=== PATIENT | male | born 1960 | race Caucasian/White ===

== ENCOUNTER → 2018-03-13 | Outpatient (CLI) | payer OTHER ==
[~2018-03-13] MED LIST: HYDR-3276 PO; LOSA25TA6 PO; OMNIPAQUE 350 MG/ML, 100ML BOTTLE ONE; PROP60TA PO
== END | disposition home or self-care (01) ==
LOC: CFH 14:06
PROVIDERS: ATTEND Physician Assistant
DX: I08.2 Rheumatic disorders of both aortic and tricuspid valves (principal); I70.0 Atherosclerosis of aorta; I71.2 Thoracic aortic aneurysm, without rupture; K76.0 Fatty (change of) liver, not elsewhere classified
CPT/HCPCS: 71275; 82565; 93306; Q9967

== ENCOUNTER 2018-04-11 06:31 | Day surgery (SDC) | payer OTHER ==
[~2018-04-11] VITALS: Ht 182.9 cm; Wt 104.5 kg
[~2018-04-11 06:31] MED LIST changes: +LOSA25TA25 PO; -LOSA25TA6 PO; -OMNIPAQUE 350 MG/ML, 100ML BOTTLE ONE
[2018-04-11 07:37] VITALS: BP 177/97
[2018-04-11] MEDS ORDERED: LOSA1TAB19 PO (07:49)
[2018-04-11] MEDS ORDERED: METR55GE TP (07:49)
[2018-04-11] MEDS ORDERED: GABA-827 PO (07:49)
[2018-04-11] MEDS ORDERED: ASPI-496 PO (07:50)
[2018-04-11 08:12] LABS: BASOPHILS # (AUTO) 0.03 x10^3/uL (0-0.1); BASOPHILS % (AUTO) 0 % (0-1); EOSINOPHILS # (AUTO) 0.08 x10^3/uL (0-0.4); EOSINOPHILS % (AUTO) 1 % (1-7); LYMPHOCYTES # (AUTO) 1.69 x10^3/uL (1-3.4); LYMPHOCYTES % (AUTO) 21 % (22-44); MD NO; MEAN CORPUSCULAR HEMOGLOBIN 27.4 pg (27.5-34.5); MEAN CORPUSCULAR HGB CONC 32.9 g/dL (33.2-36.2); MEAN CORPUSCULAR VOLUME 83.3 fL (81-97); MEAN PLATELET VOLUME 7.9 fL (7.4-10.4); MONOCYTES # (AUTO) 0.47 x10^3/uL (0.2-0.8); MONOCYTES % (AUTO) 6 % (2-9); NEUTROPHILS # (AUTO) 5.91 x10^3/uL (1.8-6.8); NEUTROPHILS % (AUTO) 72 % (42-75); PLATELET COUNT 215 x10^3/uL (130-400); RED BLOOD COUNT 6.17 x10^6/uL (4.38-5.82); RED CELL DISTRIBUTION WIDTH 14.8 % (9.4-14.8)
[2018-04-11 08:16] LABS: ANION GAP 7 mmol/L (5-15); CALCIUM 8.8 mg/dL (8.5-10.1); CHLORIDE 106 mmol/L (98-107); CREATININE 0.93 mg/dL (0.7-1.3)
[2018-04-11] MEDS ORDERED: VERAPAMIL 2.5 MG/ML, 2ML ONE (08:32)
[2018-04-11] MEDS ORDERED: NITROGLYCERIN 5 MG/ML, 10ML ONE (08:32)
[2018-04-11] MEDS ORDERED: MIDAZOLAM 1 MG/ML, 2ML ONE ×2 (08:32→09:06)
[2018-04-11] MEDS ORDERED: LIDOCAINE 1%, 20ML ONE (08:32)
[2018-04-11] MEDS ORDERED: HEPARIN 1,000 UNITS/ML, 10ML ONE (08:32)
[2018-04-11] MEDS ORDERED: FENTANYL PF 100 MCG/2ML ONE ×2 (08:32→09:06)
== END 2018-04-11 14:31 | disposition home or self-care (01) ==
LOC: CACL 06:31
PROVIDERS: ATTEND Internal Medicine Cardiovascular Disease
DX: I71.2 Thoracic aortic aneurysm, without rupture (principal); I35.0 Nonrheumatic aortic (valve) stenosis; I10 Essential (primary) hypertension; I30.9 Acute pericarditis, unspecified
CPT/HCPCS: 36415; 80048; 85025; 93454; 93567; 99156; 99157; C1760; C1769; C1894; J2250; J3010; J3490; Q9967; J1644

== ENCOUNTER 2018-04-24 04:17 | Inpatient (IN) | payer OTHER ==
[2018-04-23 13:46] LABS: MICROSCOPIC NOT IND
[2018-04-23 13:55] LABS: BASOPHILS # (AUTO) 0.11 x10^3/uL (0-0.1); BASOPHILS % (AUTO) 1 % (0-1); EOSINOPHILS # (AUTO) 0.07 x10^3/uL (0-0.4); EOSINOPHILS % (AUTO) 1 % (1-7); LYMPHOCYTES # (AUTO) 2.26 x10^3/uL (1-3.4); LYMPHOCYTES % (AUTO) 26 % (22-44); MD NO; MEAN CORPUSCULAR HEMOGLOBIN 27.2 pg (27.5-34.5); MEAN CORPUSCULAR HGB CONC 32.9 g/dL (33.2-36.2); MEAN CORPUSCULAR VOLUME 82.6 fL (81-97); MEAN PLATELET VOLUME 7.3 fL (7.4-10.4); MONOCYTES # (AUTO) 0.45 x10^3/uL (0.2-0.8); MONOCYTES % (AUTO) 5 % (2-9); NEUTROPHILS # (AUTO) 5.78 x10^3/uL (1.8-6.8); NEUTROPHILS % (AUTO) 67 % (42-75); PLATELET COUNT 268 x10^3/uL (130-400); RED BLOOD COUNT 6.29 x10^6/uL (4.38-5.82); RED CELL DISTRIBUTION WIDTH 14.8 % (9.4-14.8)
[2018-04-23 14:07] LABS: ALBUMIN 3.8 g/dL (3.4-5.0); ANION GAP 8 mmol/L (5-15); CALCIUM 9.3 mg/dL (8.5-10.1); CHLORIDE 104 mmol/L (98-107)
[2018-04-23 14:09] LABS: INTERNATIONAL NORMALIZED RATIO 1.01 (0.93-1.1); PROTHROMBIN TIME 10.7 Seconds (9.6-11.5)
[2018-04-23 14:11] LABS: ALANINE AMINOTRANSFERASE 28 U/L (12-78); ALKALINE PHOSPHATASE 70 U/L (45-117); BILIRUBIN,TOTAL 1.1 mg/dL (0.2-1.0); CREATININE 1.03 mg/dL (0.7-1.3); TOTAL PROTEIN 7.8 g/dL (6.4-8.2)
[~2018-04-24] VITALS: Ht 182.9 cm; Wt 108.5 kg
[~2018-04-24 04:17] MED LIST changes: +ASPI-496 PO; +GABA-827 PO; +LOSA1TAB19 PO; +METR55GE TP
[2018-04-24 04:37] VITALS: BP 143/89
[2018-04-24 04:38] VITALS: BP 143/91
[2018-04-24] MEDS ORDERED: CHLORHEXIDINE 15 ML UDC MM SCH (05:00)
[2018-04-24] MEDS ORDERED: INSULIN LISPRO 100 UNITS/ML, PEN SQ-INSULIN SCH (05:00)
[2018-04-24 05:09] VITALS: BP 143/89
[2018-04-24] MEDS: MUPIROCIN OINT 2%, 22GM TP SCH ×2 (05:36→21:10)
[2018-04-24] MEDS: SODIUM CHLORIDE FLUSH 10ML SYR IVF SCH ×3 (05:40→21:05)
[2018-04-24] MEDS ORDERED: THROMBIN 5,000 UNIT VIAL TP ONE (06:48)
[2018-04-24] MEDS ORDERED: MIDAZOLAM 10MG/2 ML ONE (07:01)
[2018-04-24] MEDS ORDERED: FENTANYL PF 250 MCG/5ML ONE ×4 (07:01)
[2018-04-24] MEDS ORDERED: CEFUROXIME 1.5 GM in SODIUM CHLORIDE 0.9% 50 ML IVPB PRN (07:30)
[2018-04-24] MEDS ORDERED: REGULAR INSULIN 62.5 UNITS in SODIUM CHLORIDE 0.9% 249.375 ML IV PRN ×2 (07:30→11:57)
[2018-04-24] MEDS ORDERED: EPINEPHRINE 2 MG in SODIUM CHLORIDE 0.9% 248 ML IV SCH (07:30)
[2018-04-24] MEDS ORDERED: MANNITOL PMX 20% 500 ML IVPB PRN (07:30)
[2018-04-24] MEDS ORDERED: VANCOMYCIN IV PRN (07:30)
[2018-04-24] MEDS ORDERED: SODIUM CHLORIDE 0.9% IV PRN (07:30)
[2018-04-24] MEDS ORDERED: ALBUMIN HUMAN 5% 500 ML IV PRN (07:30)
[2018-04-24] MEDS ORDERED: POTASSIUM CHLORIDE 80 MEQ, SODIUM BICARBONATE 8.4% 10 MEQ, MAGNESIUM SULFATE 0.5 GM, LI... IV PRN (07:30)
[2018-04-24] MEDS ORDERED: PHENYLEPHRINE 10 MG in SODIUM CHLORIDE 0.9% 249 ML IV PRN ×2 (07:30→11:57)
[2018-04-24] MEDS ORDERED: DEXMEDETOMIDINE 200 MCG in SODIUM CHLORIDE 0.9% 48 ML IV SCH (07:30)
[2018-04-24] MEDS: DOCUSATE 100 MG CAPSULE PO SCH ×2 (09:00→21:09)
[2018-04-24] MEDS ORDERED: PROTAMINE SULFATE 10 MG/ML, 25ML ONE ×2 (09:27)
[2018-04-24] MEDS ORDERED: PROPOFOL 10 MG/ML, 20ML ONE (09:27)
[2018-04-24] MEDS ORDERED: AMINOCAPROIC ACID 250 MG/ML, 20ML ONE ×2 (09:27)
[2018-04-24] MEDS ORDERED: ROCURONIUM 10MG/ML,5ML ONE ×2 (09:27)
[2018-04-24] MEDS ORDERED: LIDOCAINE 2% 100MG/5ML SYRINGE ONE (11:36)
[2018-04-24] MEDS ORDERED: CALCIUM CHLORIDE 10%, 10ML SYR ONE (11:36)
[2018-04-24] MEDS ORDERED: SODIUM BICARB 8.4%, 50ML SYRINGE ONE (11:36)
[2018-04-24] MEDS ORDERED: SODIUM BICARBONATE 1 MEQ/ML, 50ML VIAL ONE (11:36)
[2018-04-24] MEDS ORDERED: HEPARIN 1,000 UNITS/ML, 30ML ONE (11:37)
[2018-04-24] MEDS ORDERED: ALBUMIN HUMAN 25% 50 ML ONE (11:37)
[2018-04-24] MEDS ORDERED: NITROGLYCERIN/D5W PMX 250 ML IV PRN (11:57)
[2018-04-24] MEDS ORDERED: VASOPRESSIN 50 UNIT in SODIUM CHLORIDE 0.9% 247.5 ML IV PRN (11:57)
[2018-04-24] MEDS ORDERED: DEXMEDETOMIDINE 200 MCG in SODIUM CHLORIDE 0.9% 48 ML IV PRN (11:57)
[2018-04-24] MEDS ORDERED: SODIUM CHLORIDE 0.9% 1,000 ML IV PRN (11:57)
[2018-04-24] MEDS ORDERED: DOBUTAMINE 250 MG in SODIUM CHLORIDE 0.9% 230 ML IV PRN (11:57)
[2018-04-24] MEDS ORDERED: GLUCAGON 1 MG IM PRN (12:00)
[2018-04-24] MEDS ORDERED: DEXTROSE 4 GM TAB.CHEW PO PRN (12:00)
[2018-04-24] MEDS ORDERED: EPINEPHRINE 2 MG in SODIUM CHLORIDE 0.9% 248 ML IV PRN (12:00)
[2018-04-24] MEDS ORDERED: MIDAZOLAM 1 MG/ML, 5ML IVPush PRN (12:00)
[2018-04-24] MEDS ORDERED: ACETAMINOPHEN 650 MG SUPP PR PRN (12:00)
[2018-04-24] MEDS ORDERED: DEXTROSE 50%, 50ML SYRINGE IVPush PRN (12:00)
[2018-04-24] MEDS: KSCALE TO 4.5 IV SCH ×2 (12:00→18:00)
[2018-04-24] MEDS ORDERED: INSULIN REGULAR 100 UNITS/ML, 3ML VIAL IVPush PRN (12:00)
[2018-04-24] MEDS ORDERED: FENTANYL PF 100 MCG/2ML IVPush PRN (12:00)
[2018-04-24] MEDS ORDERED: HYDROcodone/APAP 5/325 TABLET PO PRN (12:00)
[2018-04-24] MEDS ORDERED: BISACODYL 5 MG EC TABLET PO PRN (12:00)
[2018-04-24] MEDS ORDERED: BISACODYL 10 MG SUPP PR PRN (12:00)
[2018-04-24] MEDS ORDERED: SODIUM BICARB 8.4%, 50ML SYRINGE IV PRN (12:00)
[2018-04-24] MEDS ORDERED: LACTATED RINGERS 1,000 ML IV PRN (12:00)
[2018-04-24] MEDS ORDERED: PROCHLORPERAZINE 5 MG/ML, 2ML IVPush PRN (12:00)
[2018-04-24] MEDS: MAGNESIUM SULFATE 1 GM in SODIUM CHLORIDE 0.9% 50 ML IVPB SCH (12:41)
[2018-04-24 12:51] LABS: GLUCOSE BY BLOOD GAS ANALYZER 121 mg/dL (70-110); HEMOGLOBIN BY BLOOD GAS ANALYZ 15.5 g/dL (14.0-18.0); POTASSIUM BY BLOOD GAS ANALYZR 4.2 mmol/L (3.6-5.5)
[2018-04-24] MEDS ORDERED: MORPHINE SULFATE 4 MG/ML, 1ML ONE (12:54)
[2018-04-24] MEDS: morphine SULFATE 10 MG/ML, 1ML IVPush PRN ×2 (12:59→20:40)
[2018-04-24 13:01] LABS: INTERNATIONAL NORMALIZED RATIO 1.21 (0.93-1.1); PROTHROMBIN TIME 12.7 Seconds (9.6-11.5)
[2018-04-24] MEDS: OXYcodone IR 5MG TABLET PO PRN ×3 (15:21→21:09)
[2018-04-24] MEDS: HYDROcodone/APAP 10/325 MG TABLET PO PRN (16:49)
[2018-04-24] MEDS: INSULIN LISPRO 100 UNITS/ML, PEN SQ-INSULIN SCH ×2 (16:54→21:00)
[2018-04-24] MEDS: CEFUROXIME 1.5 GM in SODIUM CHLORIDE 0.9% 50 ML IVPB SCH (20:16)
[2018-04-24] MEDS: MUPIROCIN OINT 2%, 22GM NAS SCH (21:00)
[2018-04-24] MEDS: VANCOMYCIN 1,600 MG in SODIUM CHLORIDE 0.9% 250 ML IVPB SCH (21:04)
[2018-04-25] MEDS: OXYcodone IR 5MG TABLET PO PRN ×3 (00:20→12:41)
[2018-04-25] MEDS: HYDROcodone/APAP 10/325 MG TABLET PO PRN ×2 (02:45→04:00)
[2018-04-25 04:48] LABS: INTERNATIONAL NORMALIZED RATIO 1.09 (0.93-1.1); PROTHROMBIN TIME 11.5 Seconds (9.6-11.5)
[2018-04-25 04:51] LABS: ALBUMIN 2.8 g/dL (3.4-5.0); ANION GAP 7 mmol/L (5-15); BASOPHILS % (AUTO) 2 % (0-1); CHLORIDE 105 mmol/L (98-107); EOSINOPHILS % (AUTO) 0 % (1-7); LYMPHOCYTES # (AUTO) 1.15 x10^3/uL (1-3.4); LYMPHOCYTES % (AUTO) 7 % (22-44); MD NO; MEAN CORPUSCULAR HGB CONC 33.7 g/dL (33.2-36.2); MEAN PLATELET VOLUME 7.4 fL (7.4-10.4); MONOCYTES # (AUTO) 0.97 x10^3/uL (0.2-0.8); MONOCYTES % (AUTO) 6 % (2-9); NEUTROPHILS # (AUTO) 13.92 x10^3/uL (1.8-6.8); NEUTROPHILS % (AUTO) 85 % (42-75); PLATELET COUNT 164 x10^3/uL (130-400); RED BLOOD COUNT 5.11 x10^6/uL (4.38-5.82); RED CELL DISTRIBUTION WIDTH 14.9 % (9.4-14.8)
[2018-04-25] MEDS: INSULIN LISPRO 100 UNITS/ML, PEN SQ-INSULIN SCH ×4 (05:00→23:00)
[2018-04-25] MEDS: KSCALE TO 4.5 IV SCH ×2 (06:00)
[2018-04-25] MEDS ORDERED: ETOMIDATE 20 MG/10 ML ONE (08:00)
[2018-04-25] MEDS ORDERED: PROPOFOL 10 MG/ML, 100ML IV ONE (08:00)
[2018-04-25] MEDS ORDERED: ROCURONIUM 10 MG/ML,10ML ONE (08:00)
[2018-04-25] MEDS: CEFUROXIME 1.5 GM in SODIUM CHLORIDE 0.9% 50 ML IVPB SCH (08:55)
[2018-04-25] MEDS: MUPIROCIN OINT 2%, 22GM NAS SCH ×2 (09:00→20:46)
[2018-04-25] MEDS: ASPIRIN 81 MG TABLET EC PO SCH (09:26)
[2018-04-25] MEDS: VANCOMYCIN 1,600 MG in SODIUM CHLORIDE 0.9% 250 ML IVPB SCH (09:26)
[2018-04-25] MEDS: POTASSIUM CHLORIDE 10 MEQ TABLET.ER PO SCH (09:26)
[2018-04-25] MEDS: DOCUSATE 100 MG CAPSULE PO SCH ×2 (09:26→20:43)
[2018-04-25] MEDS: FUROSEMIDE 20 MG/2 ML IV SCH (09:26)
[2018-04-25] MEDS: WARFARIN BIOPROSTHETIC VALVE PROTOCOL 2-3 XX SCH (09:27)
[2018-04-25] MEDS: SODIUM CHLORIDE FLUSH 10ML SYR IVF SCH ×2 (09:27→20:48)
[2018-04-25] MEDS: MUPIROCIN OINT 2%, 22GM TP SCH ×2 (10:11→20:48)
[2018-04-25] MEDS: WARFARIN MODERAT DOSE PROTOCOL XX SCH (12:00)
[2018-04-25] MEDS: MAGNESIUM SULFATE 1 GM in SODIUM CHLORIDE 0.9% 50 ML IVPB SCH (12:41)
[2018-04-25] MEDS ORDERED: LOSARTAN 50MG TABLET PO SCH (14:00)
[2018-04-25] MEDS ORDERED: FENTANYL PF 100 MCG/2ML ONE (15:23)
[2018-04-25] MEDS ORDERED: PHARMACY MAY ADJ FOR RENAL FX MC SCH (16:00)
[2018-04-25] MEDS: METOPROLOL TARTRATE 25 MG TABLET PO SCH (18:00)
[2018-04-25] MEDS ORDERED: WARFARIN 7.5 MG TABLET PO-COUM ONE (18:00)
[2018-04-25] MEDS ORDERED: OMNIPAQUE 350 MG/ML, 100ML BOTTLE ONE (18:07)
[2018-04-25] MEDS: FENTANYL PF 100 MCG/2ML IVPush PRN (19:11)
[2018-04-25] MEDS: PROPOFOL 100 ML IV PRN (20:31)
[2018-04-25] MEDS: AMPICILLIN/SULBACTAM 3 GM in SODIUM CHLORIDE 0.9% 100 ML IV SCH (20:32)
[2018-04-25] MEDS: CHLORHEXIDINE 15 ML UDC MM SCH (20:47)
[2018-04-26] MEDS: FENTANYL PF 100 MCG/2ML IVPush PRN ×2 (00:39→05:37)
[2018-04-26 01:15] LABS: ALANINE AMINOTRANSFERASE 18 U/L (12-78); ALBUMIN 2.5 g/dL (3.4-5.0); ANION GAP 7 mmol/L (5-15); CALCIUM 7.5 mg/dL (8.5-10.1); CHLORIDE 102 mmol/L (98-107); CREATININE 0.87 mg/dL (0.7-1.3)
[2018-04-26 01:18] LABS: ALKALINE PHOSPHATASE 48 U/L (45-117); BILIRUBIN,TOTAL 0.9 mg/dL (0.2-1.0); TOTAL PROTEIN 5.5 g/dL (6.4-8.2)
[2018-04-26] MEDS: AMPICILLIN/SULBACTAM 3 GM in SODIUM CHLORIDE 0.9% 100 ML IV SCH ×4 (02:11→20:31)
[2018-04-26 04:52] LABS: BASOPHILS # (AUTO) 0.09 x10^3/uL (0-0.1); BASOPHILS % (AUTO) 1 % (0-1); EOSINOPHILS # (AUTO) 0.02 x10^3/uL (0-0.4); EOSINOPHILS % (AUTO) 0 % (1-7); LYMPHOCYTES # (AUTO) 1.04 x10^3/uL (1-3.4); LYMPHOCYTES % (AUTO) 7 % (22-44); MD NO; MEAN CORPUSCULAR HEMOGLOBIN 28.1 pg (27.5-34.5); MEAN CORPUSCULAR HGB CONC 33.9 g/dL (33.2-36.2); MEAN PLATELET VOLUME 7.9 fL (7.4-10.4); MONOCYTES # (AUTO) 0.93 x10^3/uL (0.2-0.8); MONOCYTES % (AUTO) 6 % (2-9); NEUTROPHILS # (AUTO) 13.03 x10^3/uL (1.8-6.8); NEUTROPHILS % (AUTO) 86 % (42-75); PLATELET COUNT 151 x10^3/uL (130-400); RED BLOOD COUNT 4.61 x10^6/uL (4.38-5.82); RED CELL DISTRIBUTION WIDTH 15.2 % (9.4-14.8)
[2018-04-26 04:54] LABS: INTERNATIONAL NORMALIZED RATIO 1.21 (0.93-1.1); PROTHROMBIN TIME 12.7 Seconds (9.6-11.5)
[2018-04-26 04:55] LABS: ANION GAP 5 mmol/L (5-15); CALCIUM 7.9 mg/dL (8.5-10.1); CHLORIDE 102 mmol/L (98-107); CREATININE 0.97 mg/dL (0.7-1.3)
[2018-04-26] MEDS: INSULIN LISPRO 100 UNITS/ML, PEN SQ-INSULIN SCH ×5 (05:00→22:03)
[2018-04-26] MEDS: PROPOFOL 100 ML IV PRN ×2 (05:18→17:35)
[2018-04-26] MEDS: POTASSIUM CHLORIDE 10 MEQ TABLET.ER PO SCH (08:06)
[2018-04-26] MEDS: METOPROLOL TARTRATE 25 MG TABLET PO SCH ×2 (08:07→17:39)
[2018-04-26] MEDS: FUROSEMIDE 20 MG/2 ML IV SCH (08:30)
[2018-04-26] MEDS ORDERED: DO NOT GIVE XX PRN (09:00)
[2018-04-26] MEDS ORDERED: POTASSIUM CHLORIDE PMX 100 ML IV ONE (09:00)
[2018-04-26] MEDS: WARFARIN BIOPROSTHETIC VALVE PROTOCOL 2-3 XX SCH (09:00)
[2018-04-26] MEDS ORDERED: HEPARIN wt. based STROKE protocol MC PRN (09:00)
[2018-04-26] MEDS: DOCUSATE 100 MG CAPSULE PO SCH ×2 (09:00→19:55)
[2018-04-26] MEDS: CHLORHEXIDINE 15 ML UDC MM SCH ×2 (09:17→19:55)
[2018-04-26] MEDS: ASPIRIN 81 MG TABLET EC PO SCH (09:18)
[2018-04-26] MEDS: MUPIROCIN OINT 2%, 22GM NAS SCH ×2 (09:18→20:31)
[2018-04-26] MEDS: SODIUM CHLORIDE FLUSH 10ML SYR IVF SCH ×2 (09:20→22:03)
[2018-04-26] MEDS: OXYcodone IR 5MG TABLET PO PRN ×2 (09:31→22:02)
[2018-04-26] MEDS: ACETAMINOPHEN 325 MG TABLET PO PRN ×2 (11:50→17:28)
[2018-04-26] MEDS: WARFARIN MODERAT DOSE PROTOCOL XX SCH (12:00)
[2018-04-26] MEDS: MAGNESIUM SULFATE 1 GM in SODIUM CHLORIDE 0.9% 50 ML IVPB SCH (13:08)
[2018-04-26] MEDS: HEPARIN 25,000 UNITS/500ML PMX 500 ML IV PRN (15:36)
--- NOTE | 2018-04-26 15:46 | NUR ---
TF RECOMMENDATION: On propofol, promote at 55ml/hr. Off propofol, promote at 70 ml/hr Addendum: 04/26/18 at [address] Amended: Links added.
[2018-04-26] MEDS ORDERED: WARFARIN 7.5 MG TABLET PO-COUM ONE (18:00)
[2018-04-27] MEDS: FENTANYL PF 100 MCG/2ML IVPush PRN ×2 (00:42→22:47)
[2018-04-27] MEDS: AMPICILLIN/SULBACTAM 3 GM in SODIUM CHLORIDE 0.9% 100 ML IV SCH ×4 (01:43→22:28)
[2018-04-27] MEDS: ACETAMINOPHEN 325 MG TABLET PO PRN ×4 (03:48→21:05)
[2018-04-27 04:50] LABS: BASOPHILS # (AUTO) 0.04 x10^3/uL (0-0.1); BASOPHILS % (AUTO) 0 % (0-1); EOSINOPHILS # (AUTO) 0.01 x10^3/uL (0-0.4); EOSINOPHILS % (AUTO) 0 % (1-7); LYMPHOCYTES # (AUTO) 0.88 x10^3/uL (1-3.4); LYMPHOCYTES % (AUTO) 7 % (22-44); MD NO; MEAN CORPUSCULAR HEMOGLOBIN 28.2 pg (27.5-34.5); MEAN CORPUSCULAR VOLUME 82.8 fL (81-97); MEAN PLATELET VOLUME 8.2 fL (7.4-10.4); MONOCYTES # (AUTO) 0.79 x10^3/uL (0.2-0.8); MONOCYTES % (AUTO) 6 % (2-9); NEUTROPHILS # (AUTO) 11.37 x10^3/uL (1.8-6.8); NEUTROPHILS % (AUTO) 87 % (42-75); PLATELET COUNT 149 x10^3/uL (130-400); RED BLOOD COUNT 4.26 x10^6/uL (4.38-5.82); RED CELL DISTRIBUTION WIDTH 15.3 % (9.4-14.8)
[2018-04-27 04:54] LABS: INTERNATIONAL NORMALIZED RATIO 1.82 (0.93-1.1); PROTHROMBIN TIME 18.9 Seconds (9.6-11.5)
[2018-04-27 04:58] LABS: ANION GAP 5 mmol/L (5-15); CALCIUM 7.5 mg/dL (8.5-10.1); CHLORIDE 105 mmol/L (98-107)
[2018-04-27 04:59] LABS: CREATININE 0.83 mg/dL (0.7-1.3)
[2018-04-27] MEDS: INSULIN LISPRO 100 UNITS/ML, PEN SQ-INSULIN SCH ×4 (05:31→22:00)
[2018-04-27] MEDS: METOPROLOL TARTRATE 25 MG TABLET PO SCH ×2 (05:31→17:56)
[2018-04-27] MEDS: OXYcodone IR 5MG TABLET PO PRN (07:03)
[2018-04-27] MEDS: WARFARIN BIOPROSTHETIC VALVE PROTOCOL 2-3 XX SCH (09:00)
[2018-04-27] MEDS: CHLORHEXIDINE 15 ML UDC MM SCH (09:00)
[2018-04-27] MEDS: DOCUSATE 100 MG CAPSULE PO SCH (09:38)
[2018-04-27] MEDS: ASPIRIN 81 MG TABLET CHEW PO SCH (09:54)
[2018-04-27] MEDS: FUROSEMIDE 20 MG/2 ML IV SCH ×2 (09:55→19:27)
[2018-04-27] MEDS ORDERED: POTASSIUM CHLORIDE 20 MEQ PACKET PO SCH (10:00)
[2018-04-27] MEDS: MUPIROCIN OINT 2%, 22GM NAS SCH ×2 (10:19→19:57)
[2018-04-27] MEDS: SODIUM CHLORIDE FLUSH 10ML SYR IVF SCH ×2 (10:20→19:51)
[2018-04-27] MEDS: WARFARIN MODERAT DOSE PROTOCOL XX SCH (11:37)
[2018-04-27] MEDS: HEPARIN 25,000 UNITS/500ML PMX 500 ML IV PRN (12:07)
[2018-04-27 12:19] LABS: CHOL/HDL RATIO 4.6; LDL/HDL RATIO 2.1 (0.5-3.0)
[2018-04-27] MEDS ORDERED: AMIODARONE 150 MG in DEXTROSE 5% 100 ML IV ONE (14:00)
[2018-04-27] MEDS: AMIODARONE 900 MG in DEXTROSE 5% 482 ML IV PRN (14:05)
[2018-04-27] MEDS: PROPOFOL 100 ML IV PRN ×2 (14:06→19:51)
[2018-04-27] MEDS ORDERED: FUROSEMIDE 20 MG/2 ML IV ONE (17:30)
[2018-04-27] MEDS ORDERED: WARFARIN 5 MG TABLET PO-COUM ONE (18:00)
[2018-04-27] MEDS ORDERED: ALBUMIN HUMAN 25% 100 ML IV ONE (19:30)
[2018-04-27] MEDS: NOREPINEPHRINE 4 MG in SODIUM CHLORIDE 0.9% 246 ML IV PRN (19:55)
[2018-04-27] MEDS: DOCUSATE 50 MG/5 ML, 10ML UDC PO SCH (20:22)
[2018-04-28] MEDS: NOREPINEPHRINE 4 MG in SODIUM CHLORIDE 0.9% 246 ML IV PRN ×3 (00:34→13:49)
[2018-04-28] MEDS: AMPICILLIN/SULBACTAM 3 GM in SODIUM CHLORIDE 0.9% 100 ML IV SCH ×3 (02:12→13:48)
[2018-04-28] MEDS: HEPARIN 25,000 UNITS/500ML PMX 500 ML IV PRN (02:15)
[2018-04-28] MEDS: FENTANYL PF 100 MCG/2ML IVPush PRN ×2 (02:54→22:40)
[2018-04-28] MEDS: ACETAMINOPHEN 325 MG TABLET PO PRN (02:54)
[2018-04-28] MEDS: PROPOFOL 100 ML IV PRN ×2 (04:25→17:43)
[2018-04-28] MEDS: INSULIN LISPRO 100 UNITS/ML, PEN SQ-INSULIN SCH ×4 (04:51→22:32)
[2018-04-28] MEDS: METOPROLOL TARTRATE 25 MG TABLET PO SCH ×2 (05:52→17:42)
[2018-04-28 06:06] LABS: BASOPHILS # (AUTO) 0.07 x10^3/uL (0-0.1); BASOPHILS % (AUTO) 0 % (0-1); EOSINOPHILS % (AUTO) 0 % (1-7); LYMPHOCYTES # (AUTO) 1.75 x10^3/uL (1-3.4); LYMPHOCYTES % (AUTO) 11 % (22-44); MD NO; MEAN CORPUSCULAR HEMOGLOBIN 28.1 pg (27.5-34.5); MEAN CORPUSCULAR HGB CONC 33.9 g/dL (33.2-36.2); MEAN CORPUSCULAR VOLUME 82.9 fL (81-97); MEAN PLATELET VOLUME 9.1 fL (7.4-10.4); MONOCYTES # (AUTO) 0.74 x10^3/uL (0.2-0.8); MONOCYTES % (AUTO) 5 % (2-9); NEUTROPHILS # (AUTO) 14.04 x10^3/uL (1.8-6.8); NEUTROPHILS % (AUTO) 85 % (42-75); PLATELET COUNT 161 x10^3/uL (130-400); RED BLOOD COUNT 4.08 x10^6/uL (4.38-5.82); RED CELL DISTRIBUTION WIDTH 15.2 % (9.4-14.8)
[2018-04-28 06:14] LABS: INTERNATIONAL NORMALIZED RATIO 4.54 (0.93-1.1); PROTHROMBIN TIME 45.4 Seconds (9.6-11.5)
[2018-04-28 06:17] LABS: ANION GAP 10 mmol/L (5-15); CALCIUM 7.8 mg/dL (8.5-10.1); CHLORIDE 98 mmol/L (98-107); CREATININE 1.54 mg/dL (0.7-1.3); TRIGLYCERIDES 108 mg/dL (50-200)
[2018-04-28] MEDS ORDERED: HOLD COUMADIN MC PRN (08:00)
[2018-04-28] MEDS ORDERED: POTASSIUM CHLORIDE 20 MEQ PACKET PO SCH (08:00)
[2018-04-28] MEDS ORDERED: SODIUM CHLORIDE 0.9% 1,000 ML IV ONE (08:30)
[2018-04-28] MEDS: SODIUM CHLORIDE FLUSH 10ML SYR IVF SCH (09:00)
[2018-04-28] MEDS: WARFARIN BIOPROSTHETIC VALVE PROTOCOL 2-3 XX SCH (09:32)
[2018-04-28] MEDS: ASPIRIN 81 MG TABLET CHEW PO SCH (09:40)
[2018-04-28] MEDS: DOCUSATE 50 MG/5 ML, 10ML UDC PO SCH ×2 (09:40→21:00)
[2018-04-28] MEDS: MUPIROCIN OINT 2%, 22GM NAS SCH ×2 (09:41→21:00)
[2018-04-28] MEDS ORDERED: SODIUM CHLORIDE 0.9% 250 ML IV SCH (10:00)
[2018-04-28] MEDS ORDERED: SODIUM CHLORIDE 0.9%, 250ML IVBOLUS ONE (12:00)
[2018-04-28] MEDS ORDERED: ROCURONIUM 10 MG/ML,10ML ONE (12:00)
[2018-04-28] MEDS: WARFARIN MODERAT DOSE PROTOCOL XX SCH (12:00)
[2018-04-28] MEDS: PIPERACILLIN/TAZO/PMX 3.375GM 50 ML IV SCH ×2 (14:42→20:30)
[2018-04-28] MEDS: LINEZOLID PMX 600MG/300ML 300 ML IV SCH (15:21)
[2018-04-28] MEDS: AMIODARONE 900 MG in DEXTROSE 5% 482 ML IV PRN (15:35)
[2018-04-28 15:38] LABS: ALBUMIN 2.5 g/dL (3.4-5.0); ANION GAP 13 mmol/L (5-15); CALCIUM 7.9 mg/dL (8.5-10.1); CHLORIDE 101 mmol/L (98-107)
[2018-04-28 15:57] LABS: ALANINE AMINOTRANSFERASE 6172 U/L (12-78); ALKALINE PHOSPHATASE 93 U/L (45-117); BILIRUBIN,TOTAL 1.8 mg/dL (0.2-1.0); CREATININE 2.49 mg/dL (0.7-1.3)
[2018-04-28] MEDS ORDERED: SODIUM CHLORIDE 0.9% 1,000ML IVBOLUS ONE (18:30)
[2018-04-28] MEDS ORDERED: SODIUM BICARBONATE 1 MEQ/ML, 50ML VIAL IVPush SCH (18:30)
[2018-04-28] MEDS ORDERED: SODIUM BICARBONATE 1 MEQ/ML, 50ML VIAL ONE (18:33)
[2018-04-28] MEDS ORDERED: VECURONIUM 10 MG ONE (18:57)
[2018-04-28] MEDS ORDERED: ALBUMIN HUMAN 5% 500 ML IV ONE (19:30)
[2018-04-28] MEDS ORDERED: PHENYLEPHRINE 10 MG in SODIUM CHLORIDE 0.9% 249 ML IV PRN (19:30)
[2018-04-28] MEDS ORDERED: MANNITOL PMX 20% 500 ML IVPB PRN (19:30)
[2018-04-28] MEDS ORDERED: REGULAR INSULIN 62.5 UNITS in SODIUM CHLORIDE 0.9% 249.375 ML IV PRN (19:30)
[2018-04-28] MEDS ORDERED: ALBUMIN HUMAN 5% 500 ML IV PRN (19:30)
[2018-04-28] MEDS ORDERED: EPINEPHRINE 2 MG in SODIUM CHLORIDE 0.9% 248 ML IV SCH (19:31)
[2018-04-28] MEDS ORDERED: VANCOMYCIN 1,800 MG in SODIUM CHLORIDE 0.9% 250 ML IV PRN (19:31)
[2018-04-28] MEDS ORDERED: CEFUROXIME 1.5 GM in SODIUM CHLORIDE 0.9% 50 ML IVPB PRN (19:31)
[2018-04-28] MEDS ORDERED: DEXMEDETOMIDINE 200 MCG in SODIUM CHLORIDE 0.9% 48 ML IV SCH (19:32)
[2018-04-28] MEDS ORDERED: POTASSIUM CHLORIDE 80 MEQ, SODIUM BICARBONATE 8.4% 10 MEQ, MAGNESIUM SULFATE 0.5 GM, LI... IV PRN (19:32)
[2018-04-28] MEDS ORDERED: FENTANYL PF 250 MCG/5ML ONE ×2 (19:36→21:21)
[2018-04-28 19:50] VITALS: BP 130/61
[2018-04-28 19:52] VITALS: BP 119/62
[2018-04-28] MEDS ORDERED: CALCIUM CHLORIDE 10%, 10ML SYR ONE ×2 (20:43→21:19)
[2018-04-28] MEDS ORDERED: AMINOCAPROIC ACID 250 MG/ML, 20ML ONE (20:54)
[2018-04-28] MEDS ORDERED: ROCURONIUM 10MG/ML,5ML ONE (21:19)
[2018-04-28] MEDS ORDERED: SODIUM BICARB 8.4%, 50ML SYRINGE ONE (21:57)
[2018-04-29] MEDS: SODIUM CHLORIDE FLUSH 10ML SYR IVF SCH ×3 (00:06→20:43)
[2018-04-29] MEDS: EPINEPHRINE 2 MG in SODIUM CHLORIDE 0.9% 248 ML IV PRN ×3 (02:19→15:08)
[2018-04-29] MEDS: PIPERACILLIN/TAZO/PMX 3.375GM 50 ML IV SCH ×4 (02:20→23:19)
[2018-04-29] MEDS: PROPOFOL 100 ML IV PRN ×4 (03:32→20:16)
[2018-04-29] MEDS: LINEZOLID PMX 600MG/300ML 300 ML IV SCH ×2 (03:32→15:07)
[2018-04-29] MEDS: INSULIN LISPRO 100 UNITS/ML, PEN SQ-INSULIN SCH ×4 (05:00→23:00)
[2018-04-29 05:03] LABS: MEAN CORPUSCULAR HEMOGLOBIN 28.2 pg (27.5-34.5); MEAN CORPUSCULAR HGB CONC 34.2 g/dL (33.2-36.2); MEAN CORPUSCULAR VOLUME 82.5 fL (81-97); MEAN PLATELET VOLUME 9.3 fL (7.4-10.4); PLATELET COUNT 133 x10^3/uL (130-400); RED BLOOD COUNT 3.23 x10^6/uL (4.38-5.82); RED CELL DISTRIBUTION WIDTH 15.5 % (9.4-14.8)
[2018-04-29 05:09] LABS: INTERNATIONAL NORMALIZED RATIO 2.41 (0.93-1.1); PROTHROMBIN TIME 24.7 Seconds (9.6-11.5)
[2018-04-29 05:14] LABS: ANION GAP 15 mmol/L (5-15); CALCIUM 7.6 mg/dL (8.5-10.1); CHLORIDE 103 mmol/L (98-107)
[2018-04-29 05:16] LABS: CREATININE 3.15 mg/dL (0.7-1.3)
[2018-04-29 05:39] LABS: MD YES
[2018-04-29 05:40] LABS: BAND#(MANUAL) 0.77 x10^3/uL; BANDS%(MANUAL) 4 % (0-7); LYMPH#(MANUAL) 2.32 x10^3/uL (1-3.4); LYMPHS% (MANUAL) 12 % (22-44); MONOS#(MANUAL) 0.39 x10^3/uL (0.3-2.7); MONOS% (MANUAL) 2 % (2-9); NRBC % (MANUAL) 1 % (0-1); SEG#(MANUAL) 15.83 x10^3/uL (1.8-6.8); SEGS% (MANUAL) 82 % (42-75)
[2018-04-29 05:41] LABS: <PLATELET ESTIMATE> ADEQUATE; <PLT MORPHOLOGY> NORMAL PLT MORPH; <RBC MORPHOLOGY> NORMAL
[2018-04-29] MEDS: METOPROLOL TARTRATE 25 MG TABLET PO SCH ×2 (06:00→17:12)
[2018-04-29] MEDS: MUPIROCIN OINT 2%, 22GM NAS SCH (08:36)
[2018-04-29] MEDS: ASPIRIN 81 MG TABLET CHEW PO SCH (08:36)
[2018-04-29] MEDS: DOCUSATE 50 MG/5 ML, 10ML UDC PO SCH ×2 (08:36→20:44)
[2018-04-29] MEDS: SODIUM BICARBONATE 8.4% 150 MEQ in DEXTROSE 5% 1,000 ML IV SCH (10:08)
[2018-04-29] MEDS: FILTER 0.22 MICRON FOR AMIODARONE IV PRN (23:20)
[2018-04-29] MEDS: AMIODARONE 900 MG in DEXTROSE 5% 482 ML IV PRN (23:20)
[2018-04-30] MEDS: PROPOFOL 100 ML IV PRN ×5 (00:49→20:21)
[2018-04-30] MEDS: LINEZOLID PMX 600MG/300ML 300 ML IV SCH ×2 (03:15→18:24)
[2018-04-30] MEDS: INSULIN LISPRO 100 UNITS/ML, PEN SQ-INSULIN SCH ×4 (05:00→23:00)
[2018-04-30 05:11] LABS: MEAN CORPUSCULAR HEMOGLOBIN 27.9 pg (27.5-34.5); MEAN PLATELET VOLUME 8.9 fL (7.4-10.4); PLATELET COUNT 161 x10^3/uL (130-400); RED BLOOD COUNT 3.27 x10^6/uL (4.38-5.82)
[2018-04-30] MEDS: METOPROLOL TARTRATE 25 MG TABLET PO SCH ×2 (05:14→18:25)
[2018-04-30 05:18] LABS: INTERNATIONAL NORMALIZED RATIO 4.58 (0.93-1.1)
[2018-04-30 05:21] LABS: PROTHROMBIN TIME 45.8 Seconds (9.6-11.5)
[2018-04-30 05:25] LABS: ANION GAP 14 mmol/L (5-15); CALCIUM 7.3 mg/dL (8.5-10.1); CHLORIDE 99 mmol/L (98-107); CREATININE 4.31 mg/dL (0.7-1.3)
[2018-04-30 05:53] LABS: BASOPHILS % (AUTO) 0 % (0-1); EOSINOPHILS # (AUTO) 0.16 x10^3/uL (0-0.4); EOSINOPHILS % (AUTO) 1 % (1-7); LYMPHOCYTES # (AUTO) 0.77 x10^3/uL (1-3.4); LYMPHOCYTES % (AUTO) 4 % (22-44); MD SCAN; MONOCYTES # (AUTO) 0.14 x10^3/uL (0.2-0.8); MONOCYTES % (AUTO) 1 % (2-9); NEUTROPHILS # (AUTO) 16.56 x10^3/uL (1.8-6.8); NEUTROPHILS % (AUTO) 94 % (42-75)
[2018-04-30] MEDS: PIPERACILLIN/TAZO/PMX 3.375GM 50 ML IV SCH ×2 (05:57→10:26)
[2018-04-30] MEDS: SODIUM CHLORIDE FLUSH 10ML SYR IVF SCH ×2 (08:25→21:18)
[2018-04-30] MEDS: SODIUM BICARBONATE 8.4% 150 MEQ in DEXTROSE 5% 1,000 ML IV SCH (08:25)
[2018-04-30 09:50] LABS: ALBUMIN 2.4 g/dL (3.4-5.0); BILIRUBIN, DIRECT 1.1 mg/dL (0.1-0.2)
[2018-04-30 09:57] LABS: BILIRUBIN,INDIRECT 0.6 mg/dL (0.0-2.0); BILIRUBIN,TOTAL 1.7 mg/dL (0.2-1.0); TOTAL PROTEIN 5.6 g/dL (6.4-8.2)
[2018-04-30] MEDS: ASPIRIN 81 MG TABLET CHEW PO SCH (10:26)
[2018-04-30] MEDS: DOCUSATE 50 MG/5 ML, 10ML UDC PO SCH ×2 (10:26→21:00)
[2018-04-30] MEDS: OXYcodone IR 5MG TABLET PO PRN (10:26)
[2018-04-30] MEDS ORDERED: PIPERACILLIN/TAZO 0.75 GM in SODIUM CHLORIDE 0.9% 50 ML IV SCH (13:30)
[2018-04-30] MEDS: PIPERACILLIN/TAZO 2.25 GM in NS 50 ML IV SCH (21:18)
[2018-05-01] MEDS: PROPOFOL 100 ML IV PRN (00:52)
[2018-05-01] MEDS: LINEZOLID PMX 600MG/300ML 300 ML IV SCH ×2 (03:25→16:28)
[2018-05-01 04:31] LABS: BASOPHILS # (AUTO) 0.06 x10^3/uL (0-0.1); BASOPHILS % (AUTO) 1 % (0-1); EOSINOPHILS # (AUTO) 0.17 x10^3/uL (0-0.4); EOSINOPHILS % (AUTO) 2 % (1-7); LYMPHOCYTES # (AUTO) 1.03 x10^3/uL (1-3.4); LYMPHOCYTES % (AUTO) 10 % (22-44); MD NO; MEAN CORPUSCULAR HEMOGLOBIN 28.2 pg (27.5-34.5); MEAN CORPUSCULAR VOLUME 82.9 fL (81-97); MEAN PLATELET VOLUME 8.2 fL (7.4-10.4); MONOCYTES # (AUTO) 0.67 x10^3/uL (0.2-0.8); MONOCYTES % (AUTO) 6 % (2-9); NEUTROPHILS # (AUTO) 8.53 x10^3/uL (1.8-6.8); NEUTROPHILS % (AUTO) 82 % (42-75); PLATELET COUNT 160 x10^3/uL (130-400); RED BLOOD COUNT 3.25 x10^6/uL (4.38-5.82); RED CELL DISTRIBUTION WIDTH 15.8 % (9.4-14.8)
[2018-05-01 04:37] LABS: INTERNATIONAL NORMALIZED RATIO 4.34 (0.93-1.1); PROTHROMBIN TIME 43.5 Seconds (9.6-11.5)
[2018-05-01 04:42] LABS: CHLORIDE 98 mmol/L (98-107)
[2018-05-01 04:46] LABS: ANION GAP 11 mmol/L (5-15); CALCIUM 7.1 mg/dL (8.5-10.1); CREATININE 3.25 mg/dL (0.7-1.3); TRIGLYCERIDES 209 mg/dL (50-200)
[2018-05-01] MEDS: INSULIN LISPRO 100 UNITS/ML, PEN SQ-INSULIN SCH ×3 (05:00→17:00)
[2018-05-01] MEDS: PIPERACILLIN/TAZO 2.25 GM in NS 50 ML IV SCH ×3 (05:27→21:11)
[2018-05-01] MEDS: METOPROLOL TARTRATE 25 MG TABLET PO SCH ×2 (05:28→16:28)
[2018-05-01] MEDS: AMIODARONE 900 MG in DEXTROSE 5% 482 ML IV PRN (05:55)
[2018-05-01] MEDS: FILTER 0.22 MICRON FOR AMIODARONE IV PRN (05:55)
[2018-05-01] MEDS: SODIUM BICARBONATE 8.4% 150 MEQ in DEXTROSE 5% 1,000 ML IV SCH (08:00)
[2018-05-01 08:45] LABS: ALBUMIN 2.1 g/dL (3.4-5.0)
[2018-05-01 08:52] LABS: ALANINE AMINOTRANSFERASE 2198 U/L (12-78); ALKALINE PHOSPHATASE 93 U/L (45-117); BILIRUBIN,TOTAL 1.7 mg/dL (0.2-1.0); TOTAL PROTEIN 5.4 g/dL (6.4-8.2)
[2018-05-01] MEDS: FENTANYL PF 100 MCG/2ML IVPush PRN ×2 (11:47→14:08)
[2018-05-01 12:20] LABS: ALBUMIN 2.3 g/dL (3.4-5.0); ANION GAP 10 mmol/L (5-15); CALCIUM 7.8 mg/dL (8.5-10.1); CHLORIDE 103 mmol/L (98-107)
[2018-05-01 12:27] LABS: ALANINE AMINOTRANSFERASE 2230 U/L (12-78); ALKALINE PHOSPHATASE 136 U/L (45-117); BILIRUBIN,TOTAL 2.1 mg/dL (0.2-1.0); CREATININE 2.01 mg/dL (0.7-1.3)
[2018-05-01] MEDS: SODIUM CHLORIDE FLUSH 10ML SYR IVF SCH ×2 (13:37→21:11)
[2018-05-01] MEDS: OXYcodone IR 5MG TABLET PO PRN (13:38)
[2018-05-01] MEDS: DOCUSATE 50 MG/5 ML, 10ML UDC PO SCH ×2 (13:43→21:13)
[2018-05-01] MEDS: ASPIRIN 81 MG TABLET CHEW PO SCH (13:43)
[2018-05-01] MEDS: AMIODARONE 200 MG TABLET PO SCH (13:43)
[2018-05-01] MEDS ORDERED: hydrALAzine 20 MG/ML, 1ML ONE (13:59)
[2018-05-01] MEDS ORDERED: hydrALAzine 20 MG/ML, 1ML IV ONE (14:00)
[2018-05-01] MEDS: HYDROcodone/APAP 10/325 MG TABLET PO PRN (16:27)
[2018-05-01] MEDS ORDERED: AMLODIPINE 10 MG TAB ONE (16:40)
[2018-05-01] MEDS ORDERED: hydrALAzine 20 MG/ML, 1ML IV PRN (17:00)
[2018-05-01] MEDS ORDERED: METOLAZONE 5 MG TABLET ONE (17:56)
[2018-05-01] MEDS ORDERED: FUROSEMIDE 40 MG/4 ML ONE (17:56)
[2018-05-01] MEDS ORDERED: METOLAZONE 2.5 MG TABLET PO ONE (18:00)
[2018-05-01] MEDS ORDERED: FUROSEMIDE 100 MG/10 ML IV ONE (18:00)
[2018-05-02] MEDS: LINEZOLID PMX 600MG/300ML 300 ML IV SCH ×2 (03:38→14:39)
[2018-05-02] MEDS: PIPERACILLIN/TAZO 2.25 GM in NS 50 ML IV SCH (05:11)
[2018-05-02] MEDS: METOPROLOL TARTRATE 25 MG TABLET PO SCH ×2 (05:14→18:43)
[2018-05-02 06:05] LABS: ANION GAP 10 mmol/L (5-15); CALCIUM 7.6 mg/dL (8.5-10.1); CHLORIDE 102 mmol/L (98-107); CREATININE 2.99 mg/dL (0.7-1.3)
[2018-05-02 06:08] LABS: INTERNATIONAL NORMALIZED RATIO 2.61 (0.93-1.1); PROTHROMBIN TIME 26.7 Seconds (9.6-11.5)
[2018-05-02 06:22] LABS: BASOPHILS % (AUTO) 0 % (0-1); EOSINOPHILS # (AUTO) 0.02 x10^3/uL (0-0.4); EOSINOPHILS % (AUTO) 0 % (1-7); LYMPHOCYTES # (AUTO) 0.83 x10^3/uL (1-3.4); LYMPHOCYTES % (AUTO) 7 % (22-44); MD NO; MEAN CORPUSCULAR HEMOGLOBIN 28.4 pg (27.5-34.5); MEAN CORPUSCULAR HGB CONC 34.2 g/dL (33.2-36.2); MEAN PLATELET VOLUME 7.6 fL (7.4-10.4); MONOCYTES # (AUTO) 0.51 x10^3/uL (0.2-0.8); MONOCYTES % (AUTO) 5 % (2-9); NEUTROPHILS # (AUTO) 9.84 x10^3/uL (1.8-6.8); NEUTROPHILS % (AUTO) 88 % (42-75); PLATELET COUNT 179 x10^3/uL (130-400); RED BLOOD COUNT 3.81 x10^6/uL (4.38-5.82); RED CELL DISTRIBUTION WIDTH 15.5 % (9.4-14.8)
[2018-05-02] MEDS: SODIUM BICARBONATE 8.4% 150 MEQ in DEXTROSE 5% 1,000 ML IV SCH (07:00)
[2018-05-02] MEDS: ALBUTEROL/IPRATROPIUM 2.5MG/0.5MG, 3 ML NPPB SCH ×4 (07:35→21:12)
[2018-05-02] MEDS: SODIUM CHLORIDE FLUSH 10ML SYR IVF SCH ×2 (08:22→20:55)
[2018-05-02] MEDS: AMLODIPINE 5 MG TABLET PO SCH (08:22)
[2018-05-02] MEDS: AMIODARONE 200 MG TABLET PO SCH (08:22)
[2018-05-02] MEDS: ASPIRIN 81 MG TABLET CHEW PO SCH (08:22)
[2018-05-02] MEDS: DOCUSATE 50 MG/5 ML, 10ML UDC PO SCH ×2 (08:26→20:55)
[2018-05-02] MEDS ORDERED: METOLAZONE 5 MG TABLET PEG ONE (11:00)
[2018-05-02] MEDS: ALBUMIN HUMAN 25% 50 ML IV SCH ×2 (11:33→19:45)
[2018-05-02] MEDS: FUROSEMIDE 40 MG/4 ML IV SCH ×2 (12:17→20:54)
[2018-05-02 12:20] LABS: ALBUMIN 2.2 g/dL (3.4-5.0); ANION GAP 10 mmol/L (5-15); CALCIUM 8.1 mg/dL (8.5-10.1); CHLORIDE 102 mmol/L (98-107)
[2018-05-02] MEDS: PIPERACILLIN/TAZO/PMX 2.25GM 50 ML IV SCH ×2 (12:26→20:54)
[2018-05-02 12:29] LABS: ALANINE AMINOTRANSFERASE 1486 U/L (12-78); ALKALINE PHOSPHATASE 131 U/L (45-117); BILIRUBIN,TOTAL 1.9 mg/dL (0.2-1.0); CREATININE 3.18 mg/dL (0.7-1.3)
[2018-05-02] MEDS: OXYcodone IR 5MG TABLET PO PRN ×2 (13:56→18:43)
--- NOTE | 2018-05-02 13:59 | NUR ---
DESIGN CHIEF recommend: NPO with current use of NG tube. -Single ice chips ok when alert orange sheet posted Addendum: 05/02/18 at [address] Amended: Links added.
[2018-05-02] MEDS ORDERED: POTASSIUM CHLORIDE 20 MEQ TAB.ER.PRT NG ONE (16:00)
[2018-05-02] MEDS ORDERED: niCARDipine 100 MG in SODIUM CHLORIDE 0.9% 210 ML IV PRN (20:00)
[2018-05-02] MEDS: HYDROcodone/APAP 10/325 MG TABLET PO PRN (22:11)
[2018-05-02] MEDS ORDERED: MELATONIN 5 MG TABLET ONE (23:50)
[2018-05-03] MEDS ORDERED: MELATONIN 5 MG TABLET ONE
[2018-05-03] MEDS: MELATONIN 5 MG TABLET PO SCH ×2 (00:03→22:39)
[2018-05-03] MEDS: ALBUMIN HUMAN 25% 50 ML IV SCH ×2 (02:35→13:35)
[2018-05-03] MEDS: niCARDipine 100 MG in SODIUM CHLORIDE 0.9% 210 ML IV PRN ×2 (02:36→10:05)
[2018-05-03] MEDS: HYDROcodone/APAP 10/325 MG TABLET PO PRN ×3 (02:38→22:39)
[2018-05-03] MEDS: LINEZOLID PMX 600MG/300ML 300 ML IV SCH ×2 (03:27→14:10)
[2018-05-03 03:46] LABS: ANION GAP 11 mmol/L (5-15); CALCIUM 7.6 mg/dL (8.5-10.1); CHLORIDE 103 mmol/L (98-107)
[2018-05-03 03:47] LABS: CREATININE 3.47 mg/dL (0.7-1.3)
[2018-05-03 03:59] LABS: INTERNATIONAL NORMALIZED RATIO 2.21 (0.93-1.1); PROTHROMBIN TIME 22.7 Seconds (9.6-11.5)
[2018-05-03 04:00] LABS: BASOPHILS # (AUTO) 0.08 x10^3/uL (0-0.1); BASOPHILS % (AUTO) 1 % (0-1); EOSINOPHILS # (AUTO) 0.07 x10^3/uL (0-0.4); EOSINOPHILS % (AUTO) 1 % (1-7); LYMPHOCYTES # (AUTO) 1.05 x10^3/uL (1-3.4); LYMPHOCYTES % (AUTO) 11 % (22-44); MD NO; MEAN CORPUSCULAR HEMOGLOBIN 27.2 pg (27.5-34.5); MEAN CORPUSCULAR HGB CONC 32.3 g/dL (33.2-36.2); MEAN CORPUSCULAR VOLUME 84.1 fL (81-97); MEAN PLATELET VOLUME 7.4 fL (7.4-10.4); MONOCYTES # (AUTO) 0.58 x10^3/uL (0.2-0.8); MONOCYTES % (AUTO) 6 % (2-9); NEUTROPHILS # (AUTO) 7.76 x10^3/uL (1.8-6.8); NEUTROPHILS % (AUTO) 81 % (42-75); PLATELET COUNT 176 x10^3/uL (130-400); RED BLOOD COUNT 3.34 x10^6/uL (4.38-5.82); RED CELL DISTRIBUTION WIDTH 15.8 % (9.4-14.8)
[2018-05-03] MEDS: PIPERACILLIN/TAZO/PMX 2.25GM 50 ML IV SCH ×3 (05:00→22:39)
[2018-05-03] MEDS: SODIUM BICARBONATE 8.4% 150 MEQ in DEXTROSE 5% 1,000 ML IV SCH (06:00)
[2018-05-03] MEDS: METOPROLOL TARTRATE 25 MG TABLET PO SCH ×2 (06:19→16:34)
[2018-05-03] MEDS: ALBUTEROL/IPRATROPIUM 2.5MG/0.5MG, 3 ML NPPB SCH ×3 (07:01→15:00)
[2018-05-03] MEDS: FUROSEMIDE 40 MG/4 ML IV SCH ×2 (10:03→22:38)
[2018-05-03] MEDS: SODIUM CHLORIDE FLUSH 10ML SYR IVF SCH ×2 (10:04→21:00)
[2018-05-03] MEDS: AMLODIPINE 5 MG TABLET PO SCH (10:04)
[2018-05-03] MEDS: ASPIRIN 81 MG TABLET CHEW PO SCH (10:04)
[2018-05-03] MEDS: AMIODARONE 200 MG TABLET PO SCH (10:04)
[2018-05-03] MEDS: DOCUSATE 50 MG/5 ML, 10ML UDC PO SCH ×2 (10:04→22:38)
[2018-05-03] MEDS ORDERED: ALBUTEROL SULFATE 2.5 MG/3 ML NPPB PRN (20:30)
[2018-05-04] MEDS: LINEZOLID PMX 600MG/300ML 300 ML IV SCH (03:20)
[2018-05-04] MEDS: METOPROLOL TARTRATE 25 MG TABLET PO SCH ×2 (05:26→18:17)
[2018-05-04] MEDS: PIPERACILLIN/TAZO/PMX 2.25GM 50 ML IV SCH (05:26)
[2018-05-04 05:27] LABS: INTERNATIONAL NORMALIZED RATIO 1.56 (0.93-1.1); PROTHROMBIN TIME 16.3 Seconds (9.6-11.5)
[2018-05-04 05:32] LABS: ANION GAP 8 mmol/L (5-15); CALCIUM 8.3 mg/dL (8.5-10.1); CHLORIDE 101 mmol/L (98-107)
[2018-05-04 05:33] LABS: CREATININE 2.88 mg/dL (0.7-1.3); TRIGLYCERIDES 119 mg/dL (50-200)
[2018-05-04 05:42] LABS: BASOPHILS # (AUTO) 0.01 x10^3/uL (0-0.1); BASOPHILS % (AUTO) 0 % (0-1); EOSINOPHILS # (AUTO) 0.22 x10^3/uL (0-0.4); EOSINOPHILS % (AUTO) 2 % (1-7); LYMPHOCYTES # (AUTO) 1.56 x10^3/uL (1-3.4); LYMPHOCYTES % (AUTO) 14 % (22-44); MD NO; MEAN CORPUSCULAR HEMOGLOBIN 27.8 pg (27.5-34.5); MEAN CORPUSCULAR HGB CONC 33.1 g/dL (33.2-36.2); MEAN CORPUSCULAR VOLUME 83.8 fL (81-97); MEAN PLATELET VOLUME 7.3 fL (7.4-10.4); MONOCYTES # (AUTO) 0.75 x10^3/uL (0.2-0.8); MONOCYTES % (AUTO) 7 % (2-9); NEUTROPHILS % (AUTO) 78 % (42-75); PLATELET COUNT 192 x10^3/uL (130-400); RED BLOOD COUNT 3.37 x10^6/uL (4.38-5.82); RED CELL DISTRIBUTION WIDTH 16.1 % (9.4-14.8)
[2018-05-04] MEDS: DOCUSATE 50 MG/5 ML, 10ML UDC PO SCH ×2 (08:50→21:02)
[2018-05-04] MEDS: FUROSEMIDE 40 MG/4 ML IV SCH ×2 (08:50→21:01)
[2018-05-04] MEDS: AMIODARONE 200 MG TABLET PO SCH (08:50)
[2018-05-04] MEDS: ONDANSETRON 2MG/ML, 2ML IVPush PRN ×2 (08:50→18:18)
[2018-05-04] MEDS: ASPIRIN 81 MG TABLET CHEW PO SCH (08:51)
[2018-05-04] MEDS: AMLODIPINE 5 MG TABLET PO SCH (08:51)
[2018-05-04] MEDS: SODIUM CHLORIDE FLUSH 10ML SYR IVF SCH ×2 (09:17→21:02)
[2018-05-04] MEDS: FAMOTIDINE 20 MG/2 ML IVPush SCH (11:45)
[2018-05-04] MEDS: CALCIUM CARBONATE 500 MG/5 ML PO PRN ×2 (11:45→18:18)
[2018-05-04 12:44] LABS: ALANINE AMINOTRANSFERASE 687 U/L (12-78); ALBUMIN 2.6 g/dL (3.4-5.0); ANION GAP 9 mmol/L (5-15); CALCIUM 8.2 mg/dL (8.5-10.1); CHLORIDE 101 mmol/L (98-107); CREATININE 3.11 mg/dL (0.7-1.3)
[2018-05-04 12:46] LABS: ALKALINE PHOSPHATASE 105 U/L (45-117); BILIRUBIN,TOTAL 1.3 mg/dL (0.2-1.0); TOTAL PROTEIN 6.1 g/dL (6.4-8.2)
[2018-05-04] MEDS: MELATONIN 5 MG TABLET PO SCH (21:02)
[2018-05-05] MEDS: HYDROcodone/APAP 10/325 MG TABLET PO PRN (02:30)
[2018-05-05 04:19] LABS: INTERNATIONAL NORMALIZED RATIO 1.24 (0.93-1.1); MEAN CORPUSCULAR HEMOGLOBIN 27.1 pg (27.5-34.5); MEAN CORPUSCULAR HGB CONC 32.3 g/dL (33.2-36.2); MEAN CORPUSCULAR VOLUME 83.8 fL (81-97); MEAN PLATELET VOLUME 7.4 fL (7.4-10.4); PLATELET COUNT 193 x10^3/uL (130-400); RED BLOOD COUNT 3.35 x10^6/uL (4.38-5.82); RED CELL DISTRIBUTION WIDTH 16.5 % (9.4-14.8)
[2018-05-05 04:21] LABS: ANION GAP 10 mmol/L (5-15); CALCIUM 7.8 mg/dL (8.5-10.1); CHLORIDE 99 mmol/L (98-107); CREATININE 3.44 mg/dL (0.7-1.3)
[2018-05-05 04:50] LABS: BASOPHILS # (AUTO) 0.12 x10^3/uL (0-0.1); BASOPHILS % (AUTO) 1 % (0-1); EOSINOPHILS # (AUTO) 0.26 x10^3/uL (0-0.4); EOSINOPHILS % (AUTO) 2 % (1-7); LYMPHOCYTES # (AUTO) 1.35 x10^3/uL (1-3.4); LYMPHOCYTES % (AUTO) 11 % (22-44); MD SCAN; MONOCYTES # (AUTO) 0.65 x10^3/uL (0.2-0.8); MONOCYTES % (AUTO) 5 % (2-9); NEUTROPHILS % (AUTO) 80 % (42-75)
[2018-05-05] MEDS: METOPROLOL TARTRATE 25 MG TABLET PO SCH ×2 (06:03→18:35)
[2018-05-05 08:22] LABS: ALANINE AMINOTRANSFERASE 562 U/L (12-78); ALBUMIN 2.6 g/dL (3.4-5.0)
[2018-05-05 08:25] LABS: ALKALINE PHOSPHATASE 94 U/L (45-117)
[2018-05-05] MEDS: SODIUM CHLORIDE FLUSH 10ML SYR IVF SCH ×2 (09:19→21:26)
[2018-05-05] MEDS: ASPIRIN 81 MG TABLET CHEW PO SCH (09:19)
[2018-05-05] MEDS: AMLODIPINE 5 MG TABLET PO SCH ×2 (09:19→21:30)
[2018-05-05] MEDS: FUROSEMIDE 40 MG/4 ML IV SCH ×2 (09:19→21:27)
[2018-05-05] MEDS: FAMOTIDINE 20 MG/2 ML IVPush SCH (09:20)
[2018-05-05] MEDS: DOCUSATE 50 MG/5 ML, 10ML UDC PO SCH ×2 (09:20→21:27)
[2018-05-05] MEDS: AMIODARONE 200 MG TABLET PO SCH (09:20)
[2018-05-05] MEDS: CALCIUM CARBONATE 500 MG/5 ML PO PRN (10:00)
--- NOTE | 2018-05-05 16:18 | NUR ---
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
[2018-05-05 18:34] VITALS: BP 143/87
[2018-05-05] MEDS: MELATONIN 5 MG TABLET PO SCH (21:30)
[2018-05-06 02:02] VITALS: BP 125/75
[2018-05-06 06:04] VITALS: BP 112/70
[2018-05-06] MEDS: METOPROLOL TARTRATE 25 MG TABLET PO SCH ×2 (06:06→18:01)
[2018-05-06 06:56] LABS: BASOPHILS # (AUTO) 0.03 x10^3/uL (0-0.1); BASOPHILS % (AUTO) 0 % (0-1); EOSINOPHILS # (AUTO) 0.11 x10^3/uL (0-0.4); EOSINOPHILS % (AUTO) 1 % (1-7); LYMPHOCYTES # (AUTO) 1.02 x10^3/uL (1-3.4); LYMPHOCYTES % (AUTO) 8 % (22-44); MD NO; MEAN CORPUSCULAR HGB CONC 33.4 g/dL (33.2-36.2); MEAN CORPUSCULAR VOLUME 83.7 fL (81-97); MEAN PLATELET VOLUME 7.1 fL (7.4-10.4); MONOCYTES # (AUTO) 0.62 x10^3/uL (0.2-0.8); MONOCYTES % (AUTO) 5 % (2-9); NEUTROPHILS # (AUTO) 10.36 x10^3/uL (1.8-6.8); NEUTROPHILS % (AUTO) 85 % (42-75); PLATELET COUNT 217 x10^3/uL (130-400); RED BLOOD COUNT 3.46 x10^6/uL (4.38-5.82)
[2018-05-06 07:06] LABS: ALANINE AMINOTRANSFERASE 411 U/L (12-78); ALBUMIN 2.6 g/dL (3.4-5.0); ANION GAP 9 mmol/L (5-15); CALCIUM 8.6 mg/dL (8.5-10.1); CHLORIDE 98 mmol/L (98-107)
[2018-05-06 07:09] LABS: ALKALINE PHOSPHATASE 95 U/L (45-117); BILIRUBIN,TOTAL 1.4 mg/dL (0.2-1.0); CREATININE 3.97 mg/dL (0.7-1.3); TOTAL PROTEIN 6.1 g/dL (6.4-8.2)
[2018-05-06 08:04] LABS: INTERNATIONAL NORMALIZED RATIO 1.16 (0.93-1.1); PROTHROMBIN TIME 12.2 Seconds (9.6-11.5)
[2018-05-06] MEDS: FUROSEMIDE 40 MG/4 ML IV SCH ×2 (09:18→20:59)
[2018-05-06] MEDS: AMIODARONE 200 MG TABLET PO SCH (09:19)
[2018-05-06] MEDS: AMLODIPINE 5 MG TABLET PO SCH ×2 (09:19→21:00)
[2018-05-06] MEDS: DOCUSATE 50 MG/5 ML, 10ML UDC PO SCH ×2 (09:19→21:00)
[2018-05-06] MEDS: ASPIRIN 81 MG TABLET CHEW PO SCH (09:19)
[2018-05-06] MEDS: FAMOTIDINE 20 MG/2 ML IVPush SCH (09:20)
[2018-05-06] MEDS: SODIUM CHLORIDE FLUSH 10ML SYR IVF SCH ×2 (09:20→20:59)
[2018-05-06 16:25] VITALS: BP 131/71
[2018-05-06 20:03] VITALS: BP 117/75
[2018-05-06] MEDS: MELATONIN 5 MG TABLET PO SCH (21:00)
[2018-05-06] MEDS: TEMAZEPAM 15 MG CAPSULE PO PRN (21:00)
[2018-05-07 01:40] VITALS: BP 114/64
[2018-05-07] MEDS: OXYcodone IR 5MG TABLET PO PRN ×2 (01:48→21:51)
[2018-05-07 05:59] VITALS: BP 126/77
[2018-05-07] MEDS: METOPROLOL TARTRATE 25 MG TABLET PO SCH ×2 (06:00→18:06)
[2018-05-07 07:28] LABS: BASOPHILS # (AUTO) 0.05 x10^3/uL (0-0.1); BASOPHILS % (AUTO) 0 % (0-1); EOSINOPHILS # (AUTO) 0.12 x10^3/uL (0-0.4); EOSINOPHILS % (AUTO) 1 % (1-7); LYMPHOCYTES % (AUTO) 13 % (22-44); MD NO; MEAN CORPUSCULAR HEMOGLOBIN 27.6 pg (27.5-34.5); MEAN CORPUSCULAR HGB CONC 33.1 g/dL (33.2-36.2); MEAN CORPUSCULAR VOLUME 83.4 fL (81-97); MEAN PLATELET VOLUME 7.1 fL (7.4-10.4); MONOCYTES # (AUTO) 0.68 x10^3/uL (0.2-0.8); MONOCYTES % (AUTO) 6 % (2-9); NEUTROPHILS # (AUTO) 8.78 x10^3/uL (1.8-6.8); NEUTROPHILS % (AUTO) 80 % (42-75); PLATELET COUNT 249 x10^3/uL (130-400); RED BLOOD COUNT 3.61 x10^6/uL (4.38-5.82); RED CELL DISTRIBUTION WIDTH 16.2 % (9.4-14.8)
[2018-05-07 07:40] LABS: ANION GAP 10 mmol/L (5-15); CALCIUM 8.6 mg/dL (8.5-10.1); CHLORIDE 98 mmol/L (98-107); CREATININE 4.19 mg/dL (0.7-1.3); TRIGLYCERIDES 124 mg/dL (50-200)
[2018-05-07 07:49] LABS: INTERNATIONAL NORMALIZED RATIO 1.16 (0.93-1.1); PROTHROMBIN TIME 12.2 Seconds (9.6-11.5)
[2018-05-07 08:44] VITALS: BP 119/71
[2018-05-07] MEDS: DOCUSATE 50 MG/5 ML, 10ML UDC PO SCH ×2 (08:56→21:00)
[2018-05-07] MEDS: FAMOTIDINE 20 MG/2 ML IVPush SCH (09:09)
[2018-05-07] MEDS: ASPIRIN 81 MG TABLET CHEW PO SCH (09:09)
[2018-05-07] MEDS: AMIODARONE 200 MG TABLET PO SCH (09:09)
[2018-05-07] MEDS: AMLODIPINE 5 MG TABLET PO SCH ×2 (09:09→21:51)
[2018-05-07] MEDS: SODIUM CHLORIDE FLUSH 10ML SYR IVF SCH ×2 (09:10→21:00)
[2018-05-07] MEDS: FUROSEMIDE 40 MG/4 ML IV SCH ×2 (09:10→21:52)
[2018-05-07 09:47] LABS: ALANINE AMINOTRANSFERASE 318 U/L (12-78); ALBUMIN 2.7 g/dL (3.4-5.0)
[2018-05-07 09:49] LABS: ALKALINE PHOSPHATASE 96 U/L (45-117); BILIRUBIN,TOTAL 1.2 mg/dL (0.2-1.0); TOTAL PROTEIN 6.4 g/dL (6.4-8.2)
[2018-05-07 15:29] VITALS: BP 134/85
[2018-05-07 20:04] VITALS: BP 128/82
[2018-05-07] MEDS: MELATONIN 5 MG TABLET PO SCH (21:00)
[2018-05-07] MEDS: TEMAZEPAM 15 MG CAPSULE PO PRN (21:51)
[2018-05-08 02:03] VITALS: BP 130/76
[2018-05-08] MEDS: METOPROLOL TARTRATE 25 MG TABLET PO SCH ×2 (05:41→18:32)
[2018-05-08 05:55] LABS: BASOPHILS # (AUTO) 0.02 x10^3/uL (0-0.1); BASOPHILS % (AUTO) 0 % (0-1); EOSINOPHILS # (AUTO) 0.13 x10^3/uL (0-0.4); EOSINOPHILS % (AUTO) 1 % (1-7); LYMPHOCYTES # (AUTO) 1.23 x10^3/uL (1-3.4); LYMPHOCYTES % (AUTO) 12 % (22-44); MD NO; MEAN CORPUSCULAR HEMOGLOBIN 28.4 pg (27.5-34.5); MEAN CORPUSCULAR HGB CONC 33.8 g/dL (33.2-36.2); MEAN PLATELET VOLUME 6.9 fL (7.4-10.4); MONOCYTES # (AUTO) 0.66 x10^3/uL (0.2-0.8); MONOCYTES % (AUTO) 7 % (2-9); NEUTROPHILS # (AUTO) 8.15 x10^3/uL (1.8-6.8); NEUTROPHILS % (AUTO) 80 % (42-75); PLATELET COUNT 299 x10^3/uL (130-400); RED BLOOD COUNT 3.69 x10^6/uL (4.38-5.82); RED CELL DISTRIBUTION WIDTH 16.5 % (9.4-14.8)
[2018-05-08 06:00] LABS: ANION GAP 8 mmol/L (5-15); CALCIUM 8.4 mg/dL (8.5-10.1); CHLORIDE 96 mmol/L (98-107); CREATININE 4.33 mg/dL (0.7-1.3); INTERNATIONAL NORMALIZED RATIO 1.17 (0.93-1.1); PROTHROMBIN TIME 12.3 Seconds (9.6-11.5)
[2018-05-08 07:20] VITALS: BP 123/77
[2018-05-08] MEDS: SODIUM CHLORIDE FLUSH 10ML SYR IVF SCH ×2 (09:54→21:00)
[2018-05-08] MEDS: FUROSEMIDE 40 MG/4 ML IV SCH (09:56)
[2018-05-08] MEDS: FAMOTIDINE 20 MG/2 ML IVPush SCH (10:01)
[2018-05-08] MEDS: DOCUSATE 50 MG/5 ML, 10ML UDC PO SCH ×2 (10:07→21:25)
[2018-05-08] MEDS: ASPIRIN 81 MG TABLET CHEW PO SCH (10:09)
[2018-05-08] MEDS: AMLODIPINE 5 MG TABLET PO SCH ×2 (10:10→21:26)
[2018-05-08] MEDS: AMIODARONE 200 MG TABLET PO SCH (10:11)
[2018-05-08 12:21] LABS: ALANINE AMINOTRANSFERASE 259 U/L (12-78); ALBUMIN 2.9 g/dL (3.4-5.0); ANION GAP 9 mmol/L (5-15); CALCIUM 8.9 mg/dL (8.5-10.1); CHLORIDE 96 mmol/L (98-107); CREATININE 4.22 mg/dL (0.7-1.3)
[2018-05-08 12:23] LABS: ALKALINE PHOSPHATASE 105 U/L (45-117); BILIRUBIN,TOTAL 1.1 mg/dL (0.2-1.0); TOTAL PROTEIN 6.9 g/dL (6.4-8.2)
[2018-05-08 13:50] VITALS: BP 110/73
[2018-05-08 18:29] VITALS: BP 122/75
[2018-05-08 19:29] VITALS: BP 133/85
[2018-05-08] MEDS: MELATONIN 5 MG TABLET PO SCH (21:00)
[2018-05-08] MEDS: TEMAZEPAM 15 MG CAPSULE PO PRN (21:25)
[2018-05-08] MEDS: OXYcodone IR 5MG TABLET PO PRN (21:26)
[2018-05-09 01:40] VITALS: BP 131/80
[2018-05-09 05:29] LABS: BASOPHILS # (AUTO) 0.04 x10^3/uL (0-0.1); BASOPHILS % (AUTO) 0 % (0-1); EOSINOPHILS # (AUTO) 0.15 x10^3/uL (0-0.4); EOSINOPHILS % (AUTO) 2 % (1-7); LYMPHOCYTES # (AUTO) 1.56 x10^3/uL (1-3.4); LYMPHOCYTES % (AUTO) 18 % (22-44); MD NO; MEAN CORPUSCULAR HEMOGLOBIN 28.1 pg (27.5-34.5); MEAN CORPUSCULAR HGB CONC 33.6 g/dL (33.2-36.2); MEAN CORPUSCULAR VOLUME 83.7 fL (81-97); MEAN PLATELET VOLUME 6.8 fL (7.4-10.4); MONOCYTES # (AUTO) 0.84 x10^3/uL (0.2-0.8); MONOCYTES % (AUTO) 10 % (2-9); NEUTROPHILS # (AUTO) 5.93 x10^3/uL (1.8-6.8); NEUTROPHILS % (AUTO) 70 % (42-75); PLATELET COUNT 330 x10^3/uL (130-400); RED BLOOD COUNT 3.64 x10^6/uL (4.38-5.82); RED CELL DISTRIBUTION WIDTH 16.5 % (9.4-14.8)
[2018-05-09 05:34] LABS: INTERNATIONAL NORMALIZED RATIO 1.14 (0.93-1.1)
[2018-05-09 05:36] LABS: ANION GAP 9 mmol/L (5-15); CALCIUM 8.4 mg/dL (8.5-10.1); CHLORIDE 99 mmol/L (98-107)
[2018-05-09] MEDS: METOPROLOL TARTRATE 25 MG TABLET PO SCH ×2 (06:02→18:03)
[2018-05-09 07:15] VITALS: BP 117/81
[2018-05-09] MEDS: ACETAMINOPHEN 325 MG TABLET PO PRN (08:31)
[2018-05-09] MEDS: AMIODARONE 200 MG TABLET PO SCH (08:31)
[2018-05-09] MEDS: AMLODIPINE 5 MG TABLET PO SCH ×2 (08:31→20:33)
[2018-05-09] MEDS: FUROSEMIDE 40 MG/4 ML IV SCH (08:32)
[2018-05-09] MEDS: SODIUM CHLORIDE FLUSH 10ML SYR IVF SCH ×2 (08:32→20:16)
[2018-05-09] MEDS: ASPIRIN 81 MG TABLET CHEW PO SCH (08:32)
[2018-05-09] MEDS: DOCUSATE 50 MG/5 ML, 10ML UDC PO SCH ×2 (08:32→20:16)
[2018-05-09 10:31] LABS: ALANINE AMINOTRANSFERASE 201 U/L (12-78); ALBUMIN 2.8 g/dL (3.4-5.0); ANION GAP 10 mmol/L (5-15); CALCIUM 8.5 mg/dL (8.5-10.1); CHLORIDE 99 mmol/L (98-107)
[2018-05-09 10:34] LABS: ALKALINE PHOSPHATASE 97 U/L (45-117); TOTAL PROTEIN 6.8 g/dL (6.4-8.2)
[2018-05-09 13:50] VITALS: BP 112/72
[2018-05-09 14:03] VITALS: BP 126/72
[2018-05-09 19:55] VITALS: BP 121/72
[2018-05-09] MEDS: MELATONIN 5 MG TABLET PO SCH (20:16)
[2018-05-09] MEDS: OXYcodone IR 5MG TABLET PO PRN (20:32)
[2018-05-09] MEDS: TEMAZEPAM 15 MG CAPSULE PO PRN (20:33)
[2018-05-10 01:15] VITALS: BP 137/76
[2018-05-10] MEDS: METOPROLOL TARTRATE 25 MG TABLET PO SCH ×2 (05:37→17:06)
[2018-05-10 06:02] LABS: BASOPHILS # (AUTO) 0.03 x10^3/uL (0-0.1); BASOPHILS % (AUTO) 0 % (0-1); EOSINOPHILS # (AUTO) 0.14 x10^3/uL (0-0.4); EOSINOPHILS % (AUTO) 2 % (1-7); LYMPHOCYTES # (AUTO) 1.34 x10^3/uL (1-3.4); LYMPHOCYTES % (AUTO) 16 % (22-44); MD NO; MEAN CORPUSCULAR HGB CONC 33.3 g/dL (33.2-36.2); MEAN CORPUSCULAR VOLUME 84.3 fL (81-97); MEAN PLATELET VOLUME 6.6 fL (7.4-10.4); MONOCYTES # (AUTO) 0.72 x10^3/uL (0.2-0.8); MONOCYTES % (AUTO) 9 % (2-9); NEUTROPHILS # (AUTO) 6.05 x10^3/uL (1.8-6.8); NEUTROPHILS % (AUTO) 73 % (42-75); PLATELET COUNT 387 x10^3/uL (130-400); RED BLOOD COUNT 3.66 x10^6/uL (4.38-5.82)
[2018-05-10 06:05] LABS: INTERNATIONAL NORMALIZED RATIO 1.14 (0.93-1.1)
[2018-05-10 06:09] LABS: ANION GAP 10 mmol/L (5-15); CALCIUM 8.6 mg/dL (8.5-10.1); CHLORIDE 99 mmol/L (98-107); CREATININE 3.87 mg/dL (0.7-1.3)
[2018-05-10 06:10] LABS: TRIGLYCERIDES 108 mg/dL (50-200)
[2018-05-10 06:55] VITALS: BP 110/69
[2018-05-10] MEDS: AMLODIPINE 5 MG TABLET PO SCH ×2 (08:40→20:06)
[2018-05-10] MEDS: ACETAMINOPHEN 325 MG TABLET PO PRN (08:40)
[2018-05-10] MEDS: SODIUM CHLORIDE FLUSH 10ML SYR IVF SCH ×2 (08:41→20:10)
[2018-05-10] MEDS: ASPIRIN 81 MG TABLET CHEW PO SCH (08:41)
[2018-05-10] MEDS: AMIODARONE 200 MG TABLET PO SCH (08:41)
[2018-05-10] MEDS: FUROSEMIDE 40 MG/4 ML IV SCH (08:42)
[2018-05-10] MEDS: DOCUSATE 50 MG/5 ML, 10ML UDC PO SCH ×2 (08:42→20:07)
[2018-05-10 08:58] LABS: ALANINE AMINOTRANSFERASE 165 U/L (12-78); ALBUMIN 2.7 g/dL (3.4-5.0); ANION GAP 9 mmol/L (5-15); CALCIUM 8.6 mg/dL (8.5-10.1); CHLORIDE 101 mmol/L (98-107)
[2018-05-10 09:01] LABS: ALKALINE PHOSPHATASE 101 U/L (45-117); CREATININE 3.76 mg/dL (0.7-1.3); TOTAL PROTEIN 6.9 g/dL (6.4-8.2)
[2018-05-10 14:08] VITALS: BP 122/78
[2018-05-10] MEDS ORDERED: WARFARIN 2.5 MG TABLET PO-COUM ONE (18:00)
[2018-05-10] MEDS ORDERED: WARFARIN 5 MG TABLET PO-COUM SCH (18:00)
[2018-05-10 18:32] VITALS: BP 117/77
[2018-05-10] MEDS: OXYcodone IR 5MG TABLET PO PRN (20:06)
[2018-05-10] MEDS: TEMAZEPAM 15 MG CAPSULE PO PRN (20:06)
[2018-05-10] MEDS: MELATONIN 5 MG TABLET PO SCH (20:07)
[2018-05-11 02:43] VITALS: BP 122/76
[2018-05-11] MEDS: METOPROLOL TARTRATE 25 MG TABLET PO SCH ×2 (05:17→18:04)
[2018-05-11 05:48] LABS: BASOPHILS # (AUTO) 0.07 x10^3/uL (0-0.1); BASOPHILS % (AUTO) 1 % (0-1); EOSINOPHILS # (AUTO) 0.14 x10^3/uL (0-0.4); EOSINOPHILS % (AUTO) 2 % (1-7); LYMPHOCYTES # (AUTO) 1.63 x10^3/uL (1-3.4); LYMPHOCYTES % (AUTO) 19 % (22-44); MD NO; MEAN CORPUSCULAR HGB CONC 33.6 g/dL (33.2-36.2); MEAN CORPUSCULAR VOLUME 83.3 fL (81-97); MEAN PLATELET VOLUME 6.8 fL (7.4-10.4); MONOCYTES # (AUTO) 0.71 x10^3/uL (0.2-0.8); MONOCYTES % (AUTO) 8 % (2-9); NEUTROPHILS % (AUTO) 71 % (42-75); PLATELET COUNT 381 x10^3/uL (130-400); RED BLOOD COUNT 3.65 x10^6/uL (4.38-5.82); RED CELL DISTRIBUTION WIDTH 16.3 % (9.4-14.8)
[2018-05-11 05:52] LABS: INTERNATIONAL NORMALIZED RATIO 1.14 (0.93-1.1)
[2018-05-11 05:56] LABS: ANION GAP 8 mmol/L (5-15); CALCIUM 8.4 mg/dL (8.5-10.1); CHLORIDE 101 mmol/L (98-107); CREATININE 3.54 mg/dL (0.7-1.3)
[2018-05-11 06:42] VITALS: BP 110/71
[2018-05-11 07:56] LABS: ALANINE AMINOTRANSFERASE 136 U/L (12-78); ALBUMIN 2.6 g/dL (3.4-5.0); ANION GAP 9 mmol/L (5-15); CALCIUM 8.6 mg/dL (8.5-10.1); CHLORIDE 101 mmol/L (98-107); CREATININE 3.53 mg/dL (0.7-1.3)
[2018-05-11 07:58] LABS: ALKALINE PHOSPHATASE 98 U/L (45-117); TOTAL PROTEIN 6.6 g/dL (6.4-8.2)
[2018-05-11] MEDS: AMIODARONE 200 MG TABLET PO SCH (09:42)
[2018-05-11] MEDS: ASPIRIN 81 MG TABLET CHEW PO SCH (09:42)
[2018-05-11] MEDS: FUROSEMIDE 40 MG/4 ML IV SCH (09:42)
[2018-05-11] MEDS: DOCUSATE 50 MG/5 ML, 10ML UDC PO SCH ×2 (09:42→20:51)
[2018-05-11] MEDS: AMLODIPINE 5 MG TABLET PO SCH ×2 (09:42→20:51)
[2018-05-11] MEDS: SODIUM CHLORIDE FLUSH 10ML SYR IVF SCH ×2 (09:43→20:57)
[2018-05-11 13:04] VITALS: BP 124/84
[2018-05-11] MEDS ORDERED: WARFARIN 2.5 MG TABLET PO-COUM SCH (18:00)
[2018-05-11 18:55] VITALS: BP 107/57
[2018-05-11] MEDS: MELATONIN 5 MG TABLET PO SCH (20:51)
[2018-05-11] MEDS: TEMAZEPAM 30 MG CAPSULE PO PRN (20:51)
[2018-05-12] MEDS: METOPROLOL TARTRATE 25 MG TABLET PO SCH ×2 (05:13→18:11)
[2018-05-12 05:14] VITALS: BP 124/83
[2018-05-12 05:30] LABS: BASOPHILS # (AUTO) 0.05 x10^3/uL (0-0.1); BASOPHILS % (AUTO) 1 % (0-1); EOSINOPHILS % (AUTO) 1 % (1-7); LYMPHOCYTES # (AUTO) 1.41 x10^3/uL (1-3.4); LYMPHOCYTES % (AUTO) 17 % (22-44); MD NO; MEAN CORPUSCULAR HEMOGLOBIN 27.9 pg (27.5-34.5); MEAN CORPUSCULAR HGB CONC 33.7 g/dL (33.2-36.2); MEAN CORPUSCULAR VOLUME 82.7 fL (81-97); MEAN PLATELET VOLUME 6.4 fL (7.4-10.4); MONOCYTES # (AUTO) 0.51 x10^3/uL (0.2-0.8); MONOCYTES % (AUTO) 6 % (2-9); NEUTROPHILS # (AUTO) 6.42 x10^3/uL (1.8-6.8); NEUTROPHILS % (AUTO) 76 % (42-75); PLATELET COUNT 448 x10^3/uL (130-400); RED BLOOD COUNT 3.78 x10^6/uL (4.38-5.82); RED CELL DISTRIBUTION WIDTH 16.6 % (9.4-14.8)
[2018-05-12 05:34] LABS: ANION GAP 7 mmol/L (5-15); CALCIUM 8.4 mg/dL (8.5-10.1); CHLORIDE 103 mmol/L (98-107); CREATININE 3.24 mg/dL (0.7-1.3)
[2018-05-12 05:34] LABS: INTERNATIONAL NORMALIZED RATIO 1.15 (0.93-1.1); PROTHROMBIN TIME 12.1 Seconds (9.6-11.5)
[2018-05-12 07:36] VITALS: BP 124/79
[2018-05-12 09:22] LABS: ALANINE AMINOTRANSFERASE 113 U/L (12-78); ALBUMIN 2.7 g/dL (3.4-5.0); ANION GAP 7 mmol/L (5-15); CALCIUM 8.9 mg/dL (8.5-10.1); CHLORIDE 103 mmol/L (98-107); CREATININE 3.21 mg/dL (0.7-1.3)
[2018-05-12 09:25] LABS: ALKALINE PHOSPHATASE 103 U/L (45-117); TOTAL PROTEIN 6.8 g/dL (6.4-8.2)
[2018-05-12] MEDS ORDERED: DOCUSATE 100 MG CAPSULE ONE (09:46)
[2018-05-12] MEDS: AMIODARONE 200 MG TABLET PO SCH (09:51)
[2018-05-12] MEDS: ASPIRIN 81 MG TABLET CHEW PO SCH (09:51)
[2018-05-12] MEDS: AMLODIPINE 5 MG TABLET PO SCH ×2 (09:51→20:00)
[2018-05-12] MEDS: DOCUSATE 100 MG CAPSULE PO SCH ×2 (09:52→20:00)
[2018-05-12] MEDS: SODIUM CHLORIDE FLUSH 10ML SYR IVF SCH ×2 (09:52→19:59)
[2018-05-12] MEDS: FUROSEMIDE 40 MG/4 ML IV SCH (09:52)
[2018-05-12 13:33] VITALS: BP 120/80
[2018-05-12] MEDS: ACETAMINOPHEN 325 MG TABLET PO PRN (14:01)
[2018-05-12] MEDS ORDERED: WARFARIN 5 MG TABLET PO-COUM ONE (18:00)
[2018-05-12 18:10] VITALS: BP 127/80
[2018-05-12] MEDS: MELATONIN 5 MG TABLET PO SCH (20:00)
[2018-05-12 20:03] VITALS: BP 126/78
[2018-05-13] MEDS: TEMAZEPAM 30 MG CAPSULE PO PRN ×2 (01:58→20:18)
[2018-05-13 02:00] VITALS: BP 126/77
[2018-05-13 05:08] LABS: BASOPHILS # (AUTO) 0.25 x10^3/uL (0-0.1); BASOPHILS % (AUTO) 3 % (0-1); EOSINOPHILS # (AUTO) 0.09 x10^3/uL (0-0.4); EOSINOPHILS % (AUTO) 1 % (1-7); LYMPHOCYTES # (AUTO) 1.71 x10^3/uL (1-3.4); LYMPHOCYTES % (AUTO) 22 % (22-44); MD NO; MEAN CORPUSCULAR HGB CONC 33.6 g/dL (33.2-36.2); MEAN CORPUSCULAR VOLUME 83.3 fL (81-97); MEAN PLATELET VOLUME 6.6 fL (7.4-10.4); MONOCYTES # (AUTO) 0.43 x10^3/uL (0.2-0.8); MONOCYTES % (AUTO) 5 % (2-9); NEUTROPHILS # (AUTO) 5.44 x10^3/uL (1.8-6.8); NEUTROPHILS % (AUTO) 69 % (42-75); PLATELET COUNT 453 x10^3/uL (130-400); RED BLOOD COUNT 3.65 x10^6/uL (4.38-5.82); RED CELL DISTRIBUTION WIDTH 16.1 % (9.4-14.8)
[2018-05-13 05:16] LABS: INTERNATIONAL NORMALIZED RATIO 1.27 (0.93-1.1); PROTHROMBIN TIME 13.3 Seconds (9.6-11.5)
[2018-05-13 05:20] LABS: ALBUMIN 2.7 g/dL (3.4-5.0); ANION GAP 8 mmol/L (5-15); CALCIUM 8.7 mg/dL (8.5-10.1); CHLORIDE 104 mmol/L (98-107)
[2018-05-13 05:24] LABS: ALANINE AMINOTRANSFERASE 94 U/L (12-78); ALKALINE PHOSPHATASE 101 U/L (45-117); BILIRUBIN,TOTAL 0.9 mg/dL (0.2-1.0); CREATININE 3.01 mg/dL (0.7-1.3); TOTAL PROTEIN 6.6 g/dL (6.4-8.2); TRIGLYCERIDES 128 mg/dL (50-200)
[2018-05-13] MEDS: METOPROLOL TARTRATE 25 MG TABLET PO SCH ×2 (06:27→18:47)
[2018-05-13] MEDS ORDERED: DOCU-131 PO (07:16)
[2018-05-13] MEDS ORDERED: AMLO-150 PO (07:16)
[2018-05-13] MEDS ORDERED: ASPI-515 PO (07:16)
[2018-05-13] MEDS ORDERED: METO25TA35 PO (07:16)
[2018-05-13] MEDS ORDERED: AMIO200T42 PO (07:16)
[2018-05-13 07:57] VITALS: BP 112/74
[2018-05-13] MEDS ORDERED: POLYETHYLENE GLYCOL 17 GM PACKET ONE (08:45)
[2018-05-13] MEDS: AMIODARONE 200 MG TABLET PO SCH (08:55)
[2018-05-13] MEDS: ASPIRIN 81 MG TABLET CHEW PO SCH (08:55)
[2018-05-13] MEDS: DOCUSATE 100 MG CAPSULE PO SCH ×2 (08:55→20:18)
[2018-05-13] MEDS: TAMSULOSIN 0.4 MG CAP.ER.24H PO SCH (08:55)
[2018-05-13] MEDS: AMLODIPINE 5 MG TABLET PO SCH ×2 (08:56→20:18)
[2018-05-13] MEDS: SODIUM CHLORIDE FLUSH 10ML SYR IVF SCH ×2 (08:56→20:18)
[2018-05-13] MEDS: FUROSEMIDE 40 MG/4 ML IV SCH (08:56)
[2018-05-13] MEDS: POLYETHYLENE GLYCOL 17 GM PACKET PO PRN (08:56)
[2018-05-13] MEDS ORDERED: BISACODYL 5 MG EC TABLET PO PRN (09:00)
[2018-05-13 13:06] VITALS: BP 117/79
[2018-05-13] MEDS: ACETAMINOPHEN 325 MG TABLET PO PRN (13:14)
[2018-05-13] MEDS ORDERED: WARFARIN 7.5 MG TABLET PO-COUM ONE (18:00)
[2018-05-13 19:31] VITALS: BP 120/77
[2018-05-13] MEDS: MELATONIN 5 MG TABLET PO SCH (19:48)
[2018-05-14 02:25] VITALS: BP 114/66
[2018-05-14] MEDS: METOPROLOL TARTRATE 25 MG TABLET PO SCH ×2 (05:28→17:42)
[2018-05-14 06:11] LABS: BASOPHILS # (AUTO) 0.06 x10^3/uL (0-0.1); BASOPHILS % (AUTO) 1 % (0-1); EOSINOPHILS # (AUTO) 0.07 x10^3/uL (0-0.4); EOSINOPHILS % (AUTO) 1 % (1-7); LYMPHOCYTES # (AUTO) 1.51 x10^3/uL (1-3.4); LYMPHOCYTES % (AUTO) 19 % (22-44); MD NO; MEAN CORPUSCULAR HEMOGLOBIN 28.1 pg (27.5-34.5); MEAN CORPUSCULAR HGB CONC 33.7 g/dL (33.2-36.2); MEAN CORPUSCULAR VOLUME 83.3 fL (81-97); MEAN PLATELET VOLUME 6.8 fL (7.4-10.4); MONOCYTES # (AUTO) 0.43 x10^3/uL (0.2-0.8); MONOCYTES % (AUTO) 5 % (2-9); NEUTROPHILS # (AUTO) 6.09 x10^3/uL (1.8-6.8); NEUTROPHILS % (AUTO) 75 % (42-75); PLATELET COUNT 422 x10^3/uL (130-400); RED BLOOD COUNT 3.61 x10^6/uL (4.38-5.82); RED CELL DISTRIBUTION WIDTH 15.9 % (9.4-14.8)
[2018-05-14 06:16] LABS: INTERNATIONAL NORMALIZED RATIO 1.65 (0.93-1.1); PROTHROMBIN TIME 17.2 Seconds (9.6-11.5)
[2018-05-14 06:22] LABS: ANION GAP 9 mmol/L (5-15); CALCIUM 8.5 mg/dL (8.5-10.1); CHLORIDE 105 mmol/L (98-107)
[2018-05-14 06:24] LABS: CREATININE 2.85 mg/dL (0.7-1.3)
[2018-05-14 06:38] VITALS: BP 128/80
[2018-05-14 08:09] LABS: ALANINE AMINOTRANSFERASE 83 U/L (12-78); ALBUMIN 2.8 g/dL (3.4-5.0); BILIRUBIN,TOTAL 0.9 mg/dL (0.2-1.0)
[2018-05-14 08:22] LABS: ALKALINE PHOSPHATASE 101 U/L (45-117)
[2018-05-14] MEDS: FUROSEMIDE 40 MG/4 ML IV SCH (09:01)
[2018-05-14] MEDS: SODIUM CHLORIDE FLUSH 10ML SYR IVF SCH ×2 (09:01→20:44)
[2018-05-14] MEDS: AMLODIPINE 5 MG TABLET PO SCH ×2 (09:02→20:45)
[2018-05-14] MEDS: AMIODARONE 200 MG TABLET PO SCH (09:02)
[2018-05-14] MEDS: DOCUSATE 100 MG CAPSULE PO SCH ×2 (09:02→20:45)
[2018-05-14] MEDS: TAMSULOSIN 0.4 MG CAP.ER.24H PO SCH (09:02)
[2018-05-14] MEDS: ASPIRIN 81 MG TABLET CHEW PO SCH (09:02)
[2018-05-14] MEDS: POLYETHYLENE GLYCOL 17 GM PACKET PO PRN (09:02)
[2018-05-14] MEDS: POTASSIUM CHLORIDE 20 MEQ TAB.ER.PRT PO SCH (10:56)
[2018-05-14 13:47] VITALS: BP 122/82
[2018-05-14] MEDS ORDERED: WARFARIN 7.5 MG TABLET PO-COUM ONE (18:00)
[2018-05-14 19:55] VITALS: BP 140/76
[2018-05-14 20:19] VITALS: BP 148/82
[2018-05-14] MEDS: TEMAZEPAM 30 MG CAPSULE PO PRN (20:45)
[2018-05-14] MEDS: MELATONIN 5 MG TABLET PO SCH (20:45)
[2018-05-15 01:41] VITALS: BP 124/76
[2018-05-15 05:39] LABS: BASOPHILS # (AUTO) 0.05 x10^3/uL (0-0.1); BASOPHILS % (AUTO) 1 % (0-1); EOSINOPHILS # (AUTO) 0.08 x10^3/uL (0-0.4); EOSINOPHILS % (AUTO) 1 % (1-7); LYMPHOCYTES # (AUTO) 1.45 x10^3/uL (1-3.4); LYMPHOCYTES % (AUTO) 17 % (22-44); MD NO; MEAN CORPUSCULAR HEMOGLOBIN 27.5 pg (27.5-34.5); MEAN CORPUSCULAR HGB CONC 33.3 g/dL (33.2-36.2); MEAN CORPUSCULAR VOLUME 82.5 fL (81-97); MEAN PLATELET VOLUME 6.4 fL (7.4-10.4); MONOCYTES # (AUTO) 0.41 x10^3/uL (0.2-0.8); MONOCYTES % (AUTO) 5 % (2-9); NEUTROPHILS # (AUTO) 6.63 x10^3/uL (1.8-6.8); NEUTROPHILS % (AUTO) 77 % (42-75); PLATELET COUNT 446 x10^3/uL (130-400); RED BLOOD COUNT 3.71 x10^6/uL (4.38-5.82); RED CELL DISTRIBUTION WIDTH 15.2 % (9.4-14.8)
[2018-05-15 05:40] LABS: INTERNATIONAL NORMALIZED RATIO 2.94 (0.93-1.1); PROTHROMBIN TIME 29.9 Seconds (9.6-11.5)
[2018-05-15 05:44] LABS: ANION GAP 10 mmol/L (5-15); CALCIUM 8.7 mg/dL (8.5-10.1); CHLORIDE 104 mmol/L (98-107); CREATININE 2.76 mg/dL (0.7-1.3)
[2018-05-15 06:29] LABS: ALANINE AMINOTRANSFERASE 69 U/L (12-78); ALBUMIN 2.9 g/dL (3.4-5.0)
[2018-05-15 06:33] LABS: ALKALINE PHOSPHATASE 112 U/L (45-117); BILIRUBIN,TOTAL 0.9 mg/dL (0.2-1.0)
[2018-05-15] MEDS: METOPROLOL TARTRATE 25 MG TABLET PO SCH (06:33)
[2018-05-15 08:17] VITALS: BP 118/76
[2018-05-15] MEDS ORDERED: FUROSEMIDE 40 MG TABLET PO SCH (09:00)
[2018-05-15] MEDS: ASPIRIN 81 MG TABLET CHEW PO SCH (09:06)
[2018-05-15] MEDS: TAMSULOSIN 0.4 MG CAP.ER.24H PO SCH (09:06)
[2018-05-15] MEDS: DOCUSATE 100 MG CAPSULE PO SCH (09:06)
[2018-05-15] MEDS: POTASSIUM CHLORIDE 20 MEQ TAB.ER.PRT PO SCH (09:06)
[2018-05-15] MEDS: AMLODIPINE 5 MG TABLET PO SCH (09:06)
[2018-05-15] MEDS: SODIUM CHLORIDE FLUSH 10ML SYR IVF SCH (09:07)
[2018-05-15] MEDS: AMIODARONE 200 MG TABLET PO SCH (09:17)
[2018-05-15] MEDS ORDERED: POTA20TA6 PO (13:43)
[2018-05-15] MEDS ORDERED: TAMS-11 PO (13:43)
[2018-05-15] MEDS ORDERED: FURO40TA6 PO (13:43)
[2018-05-15] MEDS ORDERED: MELA5TAB19 PO (13:43)
[2018-05-15 13:48] VITALS: BP 125/78
[2018-05-15] MEDS ORDERED: WARF1TAB PO (15:12)
== END 2018-05-15 15:49 | DRG 219 ==
LOC: 5SO 04:17 → CSU 08:12 → CCU 04-27 10:26 → CSU 04-27 16:32 → CCU 04-28 16:41 → 5SO 05-05 18:15
PROVIDERS: ADMIT Thoracic Surgery (Cardiothoracic Vascular Surgery); ATTEND Hospitalist
PROC: 02QX0ZZ Repair Thoracic Aorta, Ascending/Arch, Open Approach (ICD-10-PCS; 2018-04-24)
PROC: B24BZZ4 Ultrasonography of Heart with Aorta, Transesophageal (ICD-10-PCS; 2018-04-24)
PROC: 5A1221Z Performance of Cardiac Output, Continuous (ICD-10-PCS; 2018-04-24)
PROC: 02RF08Z Replacement of Aortic Valve with Zooplastic Tissue, Open Approach (ICD-10-PCS; principal; 2018-04-24 07:30)
PROC: 0BH17EZ Insertion of Endotracheal Airway into Trachea, Via Natural or Artificial Opening (ICD-10-PCS; 2018-04-25)
PROC: 02HV33Z Insertion of Infusion Device into Superior Vena Cava, Percutaneous Approach (ICD-10-PCS; 2018-04-25)
PROC: 0WCC0ZZ Extirpation of Matter from Mediastinum, Open Approach (ICD-10-PCS; 2018-04-28)
PROC: 0W9900Z Drainage of Right Pleural Cavity with Drainage Device, Open Approach (ICD-10-PCS; 2018-04-28)
PROC: 5A1945Z Respiratory Ventilation, 24-96 Consecutive Hours (ICD-10-PCS; 2018-04-28)
PROC: 30233K1 Transfusion of Nonautologous Frozen Plasma into Peripheral Vein, Percutaneous Approach (ICD-10-PCS; 2018-04-28)
PROC: 02HV33Z Insertion of Infusion Device into Superior Vena Cava, Percutaneous Approach (ICD-10-PCS; 2018-04-28)
PROC: B548ZZA Ultrasonography of Superior Vena Cava, Guidance (ICD-10-PCS; 2018-04-28)
PROC: B5181ZA Fluoroscopy of Superior Vena Cava using Low Osmolar Contrast, Guidance (ICD-10-PCS; 2018-04-28)
PROC: 02HV33Z Insertion of Infusion Device into Superior Vena Cava, Percutaneous Approach (ICD-10-PCS; 2018-04-30)
PROC: B548ZZA Ultrasonography of Superior Vena Cava, Guidance (ICD-10-PCS; 2018-04-30)
PROC: B5181ZA Fluoroscopy of Superior Vena Cava using Low Osmolar Contrast, Guidance (ICD-10-PCS; 2018-04-30)
PROC: 5A1D70Z Performance of Urinary Filtration, Intermittent, Less than 6 Hours Per Day (ICD-10-PCS; 2018-04-30)
PROC: 5A1D70Z Performance of Urinary Filtration, Intermittent, Less than 6 Hours Per Day (ICD-10-PCS; 2018-05-01)
DX: I35.0 Nonrheumatic aortic (valve) stenosis (principal); I50.31 Acute diastolic (congestive) heart failure; J69.0 Pneumonitis due to inhalation of food and vomit; J96.01 Acute respiratory failure with hypoxia; K72.00 Acute and subacute hepatic failure without coma; I63.211 Cerebral infarction due to unspecified occlusion or stenosis of right vertebral artery; I31.3 Pericardial effusion (noninflammatory); I97.638 Postprocedural hematoma of a circulatory system organ or structure following other circulatory system procedure; Z99.11 Dependence on respirator [ventilator] status; N17.9 Acute kidney failure, unspecified; D68.59 Other primary thrombophilia; E87.1 Hypo-osmolality and hyponatremia; E87.2 Acidosis; I31.0 Chronic adhesive pericarditis; I31.4 Cardiac tamponade; J98.11 Atelectasis; R13.10 Dysphagia, unspecified; Y83.8 Other surgical procedures as the cause of abnormal reaction of the patient, or of later complication, without mention of misadventure at the time of the procedure; R29.810 Facial weakness; I48.2 Chronic atrial fibrillation; D63.8 Anemia in other chronic diseases classified elsewhere; I11.0 Hypertensive heart disease with heart failure; I71.2 Thoracic aortic aneurysm, without rupture; K59.00 Constipation, unspecified; N14.1 Nephropathy induced by other drugs, medicaments and biological substances; T50.8X5A Adverse effect of diagnostic agents, initial encounter; Z72.0 Tobacco use; Z79.01 Long term (current) use of anticoagulants; Z82.49 Family history of ischemic heart disease and other diseases of the circulatory system; Z86.79 Personal history of other diseases of the circulatory system
CPT/HCPCS: 36415; 36600; 74230; 77001; 82805; J3490; J7620; S0017; 36556; 36573; 70450; 70496; 70498; 70551; 71045; 71046; 76937; 80048; 80053; 80061; 80076; 81003; 82040; 82330; 82800; 82803; 82810; 82947; 82962; 83036; 83735; 84132; 84295; 84478; 85014; 85018; 85025; 85049; 85347; 85520; 85610; 85730; 86704; 86706; 86803; 86850; 86900; 86923; 87040; 87070; 87081; 87086; 87205; 87340; 88304; 88305; 88311; 93005; 93306; 93308; 93312; 93321; 93325; 93880; 93970; 94002; 94003; 94150; 94640; 94660; 94667; 94668; C1768; G0378; J0295; J0697; J1644; J1815; J1940; J2020; J2250; J2405; J2543; J2704; J2720; J3010; J3370; J3475; J3480; J7070; P9045; P9047; Q9967; 92523-GN; C1751; C1760; C1894; J0171; J0282; J0360; J1642; J2270; J2370; J7030; J7050; J7060; J7120; P9017

== ENCOUNTER → 2019-05-18 | Outpatient (CLI) | payer OTHER ==
[~2019-05-18] MED LIST changes: +AMIO200T42 PO; +AMLO-150 PO; +ASPI-515 PO; +DOCU-131 PO; +FURO40TA6 PO; +MELA5TAB14 PO; +METO25TA35 PO; +POTA20TA6 PO; +TAMS-11 PO; +WARF1TAB PO
== END | disposition home or self-care (01) ==
LOC: CVU 09:37
PROVIDERS: ATTEND Internal Medicine Cardiovascular Disease
DX: I08.8 Other rheumatic multiple valve diseases (principal); I77.819 Aortic ectasia, unspecified site; I30.9 Acute pericarditis, unspecified
CPT/HCPCS: 93306

== ENCOUNTER → 2020-08-31 | Outpatient (CLI) | payer OTHER ==
[~2020-08-31] MED LIST changes: -ASPI-515 PO; +ASPI-963 PO; -HYDR-3276 PO; +HYDR-3920 PO; -WARF1TAB PO; +WARF1TAB2 PO
== END | disposition home or self-care (01) ==
LOC: CVU 08:49
PROVIDERS: ATTEND Internal Medicine Cardiovascular Disease
DX: I08.8 Other rheumatic multiple valve diseases (principal); I11.9 Hypertensive heart disease without heart failure
CPT/HCPCS: 93306; 93356